=== PATIENT | female | born 1955 | race Caucasian/White ===

== ENCOUNTER 2018-02-14 12:07 | Inpatient (IN) | payer BC ==
[2018-02-14] MEDS ORDERED: Albuterol-Ipratrop 3 mg / 0.5 (3 ml) UD ONE ×2 (12:19→14:14)
[2018-02-14] MEDS ORDERED: Sodium Chloride 0.9% 1,000 ML IV ONE ×2 (12:29→12:30)
[2018-02-14 12:42] LABS: BASO # 0.1 K/uL (0.0-0.2); BASO % 0.5 % (0.0-2.0); HEMOGLOBIN 13.1 g/dL (11.0-16.0); LYMPH # 0.8 K/uL (1.0-4.3); LYMPH % 3.2 % (20.0-40.0); MEAN CELL VOLUME 88.2 fL (81.0-99.0); MEAN CORPUSCULAR HEMOGLOBIN 29.9 pg (27.0-31.0); MEAN CORPUSCULAR HGB CONC 33.9 g/dL (33.0-37.0); MEAN PLATELET VOLUME 8.2 fL (7.2-11.7); MONO # 0.8 K/uL (0.0-0.8); MONO % 3.3 % (0.0-10.0); NEUT # 23.3 K/uL (1.8-7.0); PLATELET COUNT 192 K/uL (130-400); RBC 4.39 Mil/uL (3.80-5.20); RED CELL DISTRIBUTION WIDTH 13.4 % (11.5-14.5)
[2018-02-14] MEDS ORDERED: Sodium Chloride 0.9% 1,000 ML ONE ×2 (12:44→13:28)
[2018-02-14 12:53] LABS: WHITE BLOOD COUNT 25.1 K/uL (4.8-10.8)
--- NOTE | 2018-02-14 12:59 | RAD ---
Date of service: 02/14/2018 HISTORY: SOB COMPARISON: Comparison made with chest radiograph 12/09/[address] scan of the chest 02/12/2012.. FINDINGS: LUNGS: Redemonstrated is left sided pneumonectomy with opacification of the left hemithorax with significant [id number] mediastinal shift. Heart cannot be adequately evaluated as a result of the aforementioned mediastinal shift Right lung appears under expanded compared the prior study with opacity in the right medial lung base that could represent atelectasis and/or developing infiltrate. Clinical correlation recommended. PLEURA: No significant pleural effusion identified, no pneumothorax apparent. CARDIOVASCULAR: No aortic atherosclerotic calcification present. Normal cardiac size. No pulmonary vascular congestion. OSSEOUS STRUCTURES: No significant abnormalities. VISUALIZED UPPER ABDOMEN: Normal. OTHER FINDINGS: None. IMPRESSION: Redemonstrated is left sided pneumonectomy with opacification of the left hemithorax with significant [id number] mediastinal shift. Heart cannot be adequately evaluated as a result of the aforementioned mediastinal shift Right lung appears under expanded compared the prior study with opacity in the right medial lung base that could represent atelectasis and/or developing infiltrate. Clinical correlation recommended.
[2018-02-14 13:14] LABS: BLOOD UREA NITROGEN 20 mg/dL (7-17); GFR NON-AFRICAN AMERICAN > 60
[2018-02-14 13:15] LABS: ALB/GLOB RATIO 1.5 (1.0-2.1); ALBUMIN 4.9 g/dL (3.5-5.0); ALT/SGPT 17 U/L (9-52); AST/SGOT 33 U/L (14-36); CALCIUM 9.6 mg/dl (8.6-10.4)
[2018-02-14] MEDS ORDERED: cefTRIAXone IV 1 gm in Dextros 50 ML IV ONE (13:27)
[2018-02-14] MEDS ORDERED: Azithromycin 500 MG in Sodium Chloride 0.9% 250 ML IV STA (13:28)
[2018-02-14] MEDS ORDERED: Albuterol-Ipratrop 3 mg / 0.5 (3 ml) UD INH STA (13:28)
[2018-02-14 13:30] LABS: B-TYPE NATRIURETIC PEPTIDE 2210 pg/mL (0-900)
[2018-02-14] MEDS ORDERED: Azithromycin 500mg/250ML NS 500 MG/250 ML BAG IVPB ONE (13:44)
[2018-02-14 13:56] LABS: VENOUS BLOOD GAS BASE EXCESS -0.4 mmol/L (0.0-2.0); VENOUS BLOOD GAS PCO2 45 mmHg (40-60); VENOUS BLOOD GAS PO2 35 mm/Hg (30-55); VENOUS BLOOD PH 7.36 (7.32-7.43)
[2018-02-14 14:03] LABS: BANDS 15 % (0-2); LYMPHOCYTE 2 % (20-40); MONOCYTE 3 % (0-10); NEUTROPHIL 80 % (50-75); PLATELET ESTIMATE NORMAL (NORMAL); TOTAL CELLS COUNTED 100
--- NOTE | 2018-02-14 14:24 | C.PDOC ---
History Of Present Illness 62 year old female presents to the ED for evaluation of cough and fever which began 3 days ago. Patient has history of left lobectomy related to either a bacterial or fungal infection. Patient denies any association with tuberculosis. Patient denies chest pain. Time Seen by Provider: 02/14/18 12:26 Chief Complaint (Nursing): Shortness Of Breath History Per: Patient History/Exam Limitations: no limitations Onset/Duration Of Symptoms: Days (3) Current Symptoms Are (Timing): Still Present Quality: denies: "Pain" Associated Symptoms: Fever Additional History Per: Patient Past Medical History Reviewed: Historical Data, Nursing Documentation, Vital Signs Vital Signs: Last Vital Signs Temp 101.6 F H 02/14/18 13:31 Pulse 96 H 02/14/18 13:56 Resp 21 02/14/18 13:56 BP 117/59 L 02/14/18 13:56 Pulse Ox 100 02/14/18 13:56 - Medical History PMH: Anemia, Asthma (QUESTIONABLE), COPD (QUESTIONABLE) Surgical History: No Surg Hx Family History: States: Unknown Family Hx - Social History Hx Tobacco Use: No Hx Alcohol Use: No Hx Substance Use: No - Immunization History Hx Tetanus Toxoid Vaccination: No Hx Influenza Vaccination: No Hx Pneumococcal Vaccination: No Review Of Systems Constitutional: Positive for: Fever Cardiovascular: Negative for: Chest Pain Respiratory: Positive for: Cough Physical Exam - Physical Exam Appears: Non-toxic, No Acute Distress, Chronically Ill, Other (thin ) Skin: Normal Color, Warm, Dry Head: Atraumatic, Normacephalic Eye(s): bilateral: Normal Inspection Oral Mucosa: Moist Neck: Supple Chest: Symmetrical, No Deformity, No Tenderness Cardiovascular: Rhythm Regular, No Murmur Respiratory: Other (absent breath sounds on left side. coarse rhonchi and egophony on right lower lung area ) Extremity: Normal ROM, Capillary Refill (less than 2 seconds ), No Swelling Neurological/Psych: Oriented x3, Normal Speech, Normal Cognition ED Course And Treatment - Laboratory Results Result Diagrams: 02/14/18 12:39 02/14/18 12:39 Lab Interpretation: Abnormal (vbg lactate normal and repeat decreasing) ECG: Interpreted By [place] ECG Interpretation: Normal Rate From EC O2 Sat by Pulse Oximetry: 100 (on RA) Pulse Ox Interpretation: Normal - Radiology CXR: Interpreted by Me CXR Interpretation: Yes: Infiltrates (+RLL, + L lobectomy) - Other Rad CXR X-Ray: Viewed By Me, Read By Radiologist Interpretation: Date of service: 02/14/2018. HISTORY: SOB. COMPARISON: Comparison made with chest radiograph 12/09/[address] scan of the chest 02/12/2012.. FINDINGS: LUNGS: Redemonstrated is left sided pneumonectomy with opacification of the left hemithorax with significant [id number] mediastinal shift. Heart cannot be adequately evaluated as a result of the aforementioned mediastinal shift. Right lung appears under expanded compared the prior study with opacity in the right medial lung base that could represent atelectasis and/or developing infiltrate. Clinical correlation recommended. PLEURA: No significant pleural effusion identified, no pneumothorax apparent. CARDIOVASCULAR: No aortic atherosclerotic calcification present. Normal cardiac size. No pulmonary vascular congestion. OSSEOUS STRUCTURES: No significant abnormalities. VISUALIZED UPPER ABDOMEN: Normal. OTHER FINDINGS: None. IMPRESSION: Redemonstrated is left sided pneumonectomy with opacification of the left hemithorax with significant [id number] mediastinal shift. Heart cannot be adequately evaluated as a result of the aforementioned mediastinal shift. Right lung appears under expanded compared the prior study with opacity in the right medial lung base that could represent atelectasis and/or developing infiltrate. Clinical correlation recommended. Progress Note: Bloodwork, CXR, EKG, Flu swab ordered and reviewed. Albuterol INH, Solu-Medrol IVP, Tylenol PO, Rocephin IV, Zithromax IV, and IV Fluids given. Reevaluation Time: 16:33 Reassessment Condition: Improved - Physician Consult Information Outcome Of Conversation: 1330- and on- multiple failed attempts to contact Dr. Cerda. 1630: d/w Dr. Maxim Ramirez, ok to admit Medical Decision Making Medical Decision Making: RLL PNA, h/o L lobectomy Disposition Doctor Will See Patient In The: Hospital Counseled Patient/Family Regarding: Studies Performed, Diagnosis - Disposition Disposition: HOSPITALIZED Disposition Time: 16:35 Condition: GOOD Forms: [facility] (Pashto) - Clinical Impression Clinical Impression: Pneumonia - Scribe Statement The provider has reviewed the documentation as recorded by the Scribe (Maria Isabel Ramirez) Provider Attestation: All medical record entries made by the Scribe were at my direction and personally dictated by me. I have reviewed the chart and agree that the record accurately reflects my personal performance of the history, physical exam, medical decision making, and the department course for this patient. I have also personally directed, reviewed, and agree with the discharge instructions and disposition.
[2018-02-14] MEDS ORDERED: cefTRIAXone 1 gm 1 GM/100 ML BAG IVPB ONE (15:08)
[2018-02-14 16:09] LABS: VENOUS BLOOD GAS BASE EXCESS -6.7 mmol/L (0.0-2.0); VENOUS BLOOD GAS PCO2 39 mmHg (40-60); VENOUS BLOOD GAS PO2 65 mm/Hg (30-55)
--- NOTE | 2018-02-14 18:30 | CP.PCM.HP ---
Past Patient History - Past Social History Smoking Status: Never Smoked - PULMONARY Hx Asthma: Yes (QUESTIONABLE) Hx Chronic Obstructive Pulmonary Disease (COPD): Yes (QUESTIONABLE) - HEMATOLOGICAL/ONCOLOGICAL Hx Anemia: Yes - PSYCHIATRIC Hx Substance Use: No - SURGICAL HISTORY Hx Surgeries: Yes Other/Comment: L LUNG REMOVAL 2003 Meds Allergies/Adverse Reactions: Allergies Allergy/AdvReac Type Severity Reaction Status Date / Time No Known Allergies Allergy Verified 08/20/14 17:30 Results - Vital Signs Recent Vital Signs: Last Vital Signs Temp 98.5 F 02/14/18 17:56 Pulse 90 02/14/18 17:56 Resp 23 02/14/18 17:56 BP 101/51 L 02/14/18 17:56 Pulse Ox 96 02/14/18 17:56 - Labs Result Diagrams: 02/14/18 12:39 02/14/18 12:39 Labs: Laboratory Results - last 24 hr 02/14/18 02/14/18 02/14/18 01:50 12:39 12:39 WBC 25.1 H D RBC 4.39 Hgb 13.1 Hct 38.7 MCV 88.2 MCH 29.9 MCHC 33.9 RDW 13.4 Plt Count 192 MPV 8.2 Neut % (Auto) 93.0 H Lymph % (Auto) 3.2 L [place] % (Auto) 3.3 Eos % (Auto) 0.0 Baso % (Auto) 0.5 Neut # (Auto) 23.3 H Lymph # (Auto) 0.8 L [place] # (Auto) 0.8 Eos # (Auto) 0.0 Baso # (Auto) 0.1 Neutrophils % (Manual) 80 H Band Neutrophils % 15 H* Lymphocytes % (Manual) 2 L Monocytes % (Manual) 3 Platelet Estimate Normal pO2 35 VBG pH 7.36 VBG pCO2 45 VBG HCO3 23.7 VBG Total CO2 26.8 VBG O2 Sat (Calc) 73.3 H VBG Base Excess -0.4 L VBG Potassium 3.5 L Sodium 140.0 140 Chloride 110.0 H 99 Glucose 129 H Lactate 1.8 FiO2 Potassium 3.7 Carbon Dioxide 28 Anion Gap 17 BUN 20 H Creatinine 0.9 Est GFR ( Amer) > 60 Est GFR (Non-Af Amer) > 60 Random Glucose 121 H Calcium 9.6 Total Bilirubin 1.1 AST 33 ALT 17 Alkaline Phosphatase 88 Troponin I 0.0150 NT-Pro-B Natriuret Pep 2210 H Total Protein 8.3 Albumin 4.9 Globulin 3.4 Albumin/Globulin Ratio 1.5 Venous Blood Potassium 3.5 L Influenza Typ A,B (EIA) 02/14/18 02/14/18 13:01 16:05 WBC RBC Hgb Hct MCV MCH MCHC RDW Plt Count MPV Neut % (Auto) Lymph % (Auto) [place] % (Auto) Eos % (Auto) Baso % (Auto) Neut # (Auto) Lymph # (Auto) [place] # (Auto) Eos # (Auto) Baso # (Auto) Neutrophils % (Manual) Band Neutrophils % Lymphocytes % (Manual) Monocytes % (Manual) Platelet Estimate pO2 65 H VBG pH 7.30 L VBG pCO2 39 L VBG HCO3 19.5 VBG Total CO2 20.4 L VBG O2 Sat (Calc) 94.5 H VBG Base Excess -6.7 L VBG Potassium 2.6 L Sodium 147.0 Chloride 121.0 H Glucose 133 H Lactate 1.4 FiO2 21.0 Potassium Carbon Dioxide Anion Gap BUN Creatinine Est GFR ( Amer) Est GFR (Non-Af Amer) Random Glucose Calcium Total Bilirubin AST ALT Alkaline Phosphatase Troponin I NT-Pro-B Natriuret Pep Total Protein Albumin Globulin Albumin/Globulin Ratio Venous Blood Potassium 2.6 L Influenza Typ A,B (EIA) Negative for flu a/b
--- NOTE | 2018-02-14 19:45 | CP.PCM.CON ---
History of Present Illness - History of Present Illness History of Present Illness: 62 year old female presents to the ED for evaluation of cough and fever which began 3 days ago. Patient has history of left lobectomy related to either a bacterial or fungal infection. Patient denies any association with tuberculosis. Patient denies chest pain. CXR reviewed - white out left side right side is clear PMH ? aspergillosis s/p lobectomy Left lobectomy SH non smoker FH - n/c Review of Systems - Review of Systems All systems: reviewed and no additional remarkable complaints except - Constitutional Constitutional: As Per HPI, Anorexia, Fever - EENT Eyes: absent: As Per HPI, Blind Spots, Blurred Vision, Change in Vision, Decreased Night Vision, Diplopia, Discharge, Dry Eye, Exophthalmos, Floaters, Irritation, Itchy Eyes, Loss of Peripheral Vision, Pain, Photophobia, Requires Corrective Lenses, Sees Flashes, Spots in Vision, Tunnel Vision, Other Visual Disturbances, Loss of Vision, Other Ears: absent: As Per HPI, Decreased Hearing, Ear Discharge, Ear Pain, Tinnitus, Abnormal Hearing, Disequilibrium, Dizziness, Other Nose/Mouth/Throat: absent: As Per HPI, Epistaxis, Nasal Congestion, Nasal Discharge, Nasal Obstruction, Nasal Trauma, Nose Pain, Post Nasal Drip, Sinus Pain, Sinus Pressure, Bleeding Gums, Change in Voice, Dental Pain, Dry Mouth, Dysphagia, Halitosis, Hoarsness, Lip Swelling, Mouth Lesions, Mouth Pain, Odynophagia, Sore Throat, Throat Swelling, Tongue Swelling, Facial Pain, Neck Pain, Neck Mass, Other - Cardiovascular Cardiovascular: absent: As Per HPI, Acrocyanosis, Chest Pain, Chest Pain at Rest, Chest Pain with Activity, Claudication, Diaphoresis, Dyspnea, Dyspnea on Exertion, Edema, Irregular Heart Rhythm, Pain Radiating to Arm/Neck/Jaw, Leg Edema, Leg Ulcers, Lightheadedness, Orthopnea, Palpitations, Paroxysmal Nocturnal Dyspnea, Pedal Edema, Radiating Pain, Rapid Heart Rate, Slow Heart Rate, Syncope, Other - Respiratory Respiratory: As Per HPI, Cough, Dyspnea Past Patient History - Past Medical History & Family History Past Medical History?: Yes - Past Social History Smoking Status: Never Smoked - CARDIAC Hx Cardiac Disorders: No - PULMONARY Hx Respiratory Disorders: Yes Hx Asthma: Yes Hx Chronic Obstructive Pulmonary Disease (COPD): Yes - NEUROLOGICAL Hx Neurological Disorder: No - HEENT Hx HEENT Problems: No - RENAL Hx Chronic Kidney Disease: No - ENDOCRINE/METABOLIC Hx Endocrine Disorders: No - HEMATOLOGICAL/ONCOLOGICAL Hx Blood Disorders: Yes Hx Anemia: Yes - INTEGUMENTARY Hx Dermatological Problems: No - MUSCULOSKELETAL/RHEUMATOLOGICAL Hx Musculoskeletal Disorders: No Hx Falls: No - GASTROINTESTINAL Hx Gastrointestinal Disorders: No - GENITOURINARY/GYNECOLOGICAL Hx Genitourinary Disorders: No - PSYCHIATRIC Hx Psychophysiologic Disorder: No Hx Substance Use: No - SURGICAL HISTORY Hx Surgeries: Yes Hx Hysterectomy: Yes Other/Comment: L LUNG REMOVAL 2004 - ANESTHESIA Hx Anesthesia: Yes Hx Anesthesia Reactions: No Hx Malignant Hyperthermia: No Has any member of the family had a problem w/ anesthesia?: No Meds Allergies/Adverse Reactions: Allergies Allergy/AdvReac Type Severity Reaction Status Date / Time morphine AdvReac HEADACHE Verified 02/14/18 18:51 - Medications Medications: Current Medications Albuterol/Ipratropium (Duoneb 3 Mg/0.5 Mg (3 Ml) Ud) 3 ml INH RQ6 LORY Fluticasone/Vilanterol (Breo Ellipta 100-25 Mcg Inh) 1 puff INH RQ24 LORY Ceftriaxone Sodium (Rocephin Iv 1 Gm Duplex) 50 mls @ 100 mls/hr IVPB DAILY LORY; Protocol Azithromycin 500 mg/ Sodium (Chloride) 250 mls @ 250 mls/hr IVPB DAILY LORY; Protocol Methylprednisolone (Solu-Medrol) 40 mg IVP Q8 LORY Montelukast Sodium (Singulair) 10 mg PO HS LORY Tiotropium [place] (Spiriva) 1 mcg INH DAILY LORY Physical Exam - Constitutional Appears: Cachectic, Chronically Ill - Head Exam Head Exam: NORMOCEPHALIC - Eye Exam Eye Exam: PERRL Pupil Exam: NORMAL ACCOMODATION - ENT Exam ENT Exam: Mucous Membranes Dry - Neck Exam Neck exam: Positive for: Normal Inspection - Respiratory Exam Respiratory Exam: Decreased Breath Sounds, Prolonged Expiratory Phase, Rales - Cardiovascular Exam Cardiovascular Exam: REGULAR RHYTHM - GI/Abdominal Exam GI & Abdominal Exam: Normal Bowel Sounds, Soft - Rectal Exam Rectal Exam: Deferred - Exam Exam: NORMAL INSPECTION - Extremities Exam Extremities exam: Positive for: full ROM - Back Exam Back exam: FULL ROM - Neurological Exam Neurological exam: CN II-XII Intact, Oriented x3 - Psychiatric Exam Psychiatric exam: Normal Affect - Skin Skin Exam: Dry Results - Vital Signs Recent Vital Signs: Last Vital Signs Temp 98.0 F 02/14/18 18:33 Pulse 87 02/14/18 18:33 Resp 20 02/14/18 18:58 BP 106/61 02/14/18 18:33 Pulse Ox 97 02/14/18 18:58 - Labs Result Diagrams: 02/15/18 08:16 02/15/18 08:16 Labs: Laboratory Results - last 24 hr 02/14/18 02/14/18 02/14/18 01:50 12:39 12:39 WBC 25.1 H D RBC 4.39 Hgb 13.1 Hct 38.7 MCV 88.2 MCH 29.9 MCHC 33.9 RDW 13.4 Plt Count 192 MPV 8.2 Neut % (Auto) 93.0 H Lymph % (Auto) 3.2 L [place] % (Auto) 3.3 Eos % (Auto) 0.0 Baso % (Auto) 0.5 Neut # (Auto) 23.3 H Lymph # (Auto) 0.8 L [place] # (Auto) 0.8 Eos # (Auto) 0.0 Baso # (Auto) 0.1 Neutrophils % (Manual) 80 H Band Neutrophils % 15 H* Lymphocytes % (Manual) 2 L Monocytes % (Manual) 3 Platelet Estimate Normal pO2 35 VBG pH 7.36 VBG pCO2 45 VBG HCO3 23.7 VBG Total CO2 26.8 VBG O2 Sat (Calc) 73.3 H VBG Base Excess -0.4 L VBG Potassium 3.5 L Sodium 140.0 140 Chloride 110.0 H 99 Glucose 129 H Lactate 1.8 FiO2 Potassium 3.7 Carbon Dioxide 28 Anion Gap 17 BUN 20 H Creatinine 0.9 Est GFR ( Amer) > 60 Est GFR (Non-Af Amer) > 60 Random Glucose 121 H Calcium 9.6 Total Bilirubin 1.1 AST 33 ALT 17 Alkaline Phosphatase 88 Troponin I 0.0150 NT-Pro-B Natriuret Pep 2210 H Total Protein 8.3 Albumin 4.9 Globulin 3.4 Albumin/Globulin Ratio 1.5 Venous Blood Potassium 3.5 L Influenza Typ A,B (EIA) 02/14/18 02/14/18 13:01 16:05 WBC RBC Hgb Hct MCV MCH MCHC RDW Plt Count MPV Neut % (Auto) Lymph % (Auto) [place] % (Auto) Eos % (Auto) Baso % (Auto) Neut # (Auto) Lymph # (Auto) [place] # (Auto) Eos # (Auto) Baso # (Auto) Neutrophils % (Manual) Band Neutrophils % Lymphocytes % (Manual) Monocytes % (Manual) Platelet Estimate pO2 65 H VBG pH 7.30 L VBG pCO2 39 L VBG HCO3 19.5 VBG Total CO2 20.4 L VBG O2 Sat (Calc) 94.5 H VBG Base Excess -6.7 L VBG Potassium 2.6 L Sodium 147.0 Chloride 121.0 H Glucose 133 H Lactate 1.4 FiO2 21.0 Potassium Carbon Dioxide Anion Gap BUN Creatinine Est GFR ( Amer) Est GFR (Non-Af Amer) Random Glucose Calcium Total Bilirubin AST ALT Alkaline Phosphatase Troponin I NT-Pro-B Natriuret Pep Total Protein Albumin Globulin Albumin/Globulin Ratio Venous Blood Potassium 2.6 L Influenza Typ A,B (EIA) Negative for flu a/b Assessment & Plan - Assessment and Plan (Free Text) Assessment: severe pneumonia hx of lobectomy left side ? hx aspergillosis impending respiratory failure r/o sepsis add coverage for pseudomonas screen for MRSA cont coverage for atypicals/ legionella cultures and serologies
[2018-02-14] MEDS: Cefepime IV 1 gm in Dextrose 1 GM/50 ML BAG IVPB SCH (20:59)
[2018-02-14] MEDS: MethylPREDNISolone 40 mg Vial IVP SCH (21:01)
[2018-02-15] MEDS: Albuterol-Ipratrop 3 mg / 0.5 (3 ml) UD INH SCH ×4 (01:01→20:03)
[2018-02-15] MEDS: Cefepime IV 1 gm in Dextrose 1 GM/50 ML BAG IVPB SCH ×3 (03:28→19:51)
[2018-02-15] MEDS: MethylPREDNISolone 40 mg Vial IVP SCH ×3 (05:25→21:39)
[2018-02-15] MEDS ORDERED: Fluticasone-Vilanterol 100/25mcg Diskus INH SCH (08:00)
[2018-02-15 08:28] LABS: INFLUENZA A B NEGATIVE FOR FLU A/B (NEGATIVE)
[2018-02-15 08:28] LABS: LYMPH # 0.6 K/uL (1.0-4.3); LYMPH % 2.9 % (20.0-40.0); MONO # 0.4 K/uL (0.0-0.8); MONO % 1.7 % (0.0-10.0); RED CELL DISTRIBUTION WIDTH 13.7 % (11.5-14.5)
[2018-02-15 08:33] LABS: BASO % 0.1 % (0.0-2.0); MEAN CELL VOLUME 87.6 fL (81.0-99.0); MEAN CORPUSCULAR HEMOGLOBIN 29.5 pg (27.0-31.0); MEAN CORPUSCULAR HGB CONC 33.7 g/dL (33.0-37.0); MEAN PLATELET VOLUME 8.9 fL (7.2-11.7); NEUT # 20.5 K/uL (1.8-7.0); NEUT % 95.3 % (50.0-75.0); PLATELET COUNT 147 K/uL (130-400); RBC 3.67 Mil/uL (3.80-5.20); WHITE BLOOD COUNT 21.6 K/uL (4.8-10.8)
[2018-02-15 08:34] LABS: LEGIONELLA AG URINE NEGATIVE (NEGATIVE)
[2018-02-15 08:39] LABS: HEMOGLOBIN 10.8 g/dL (11.0-16.0)
[2018-02-15 08:51] LABS: BLOOD UREA NITROGEN 14 mg/dL (7-17); CALCIUM 9.2 mg/dl (8.6-10.4); GFR NON-AFRICAN AMERICAN > 60
[2018-02-15 09:52] LABS: BANDS 15 % (0-2); LYMPHOCYTE 2 % (20-40); MONOCYTE 4 % (0-10); NEUTROPHIL 79 % (50-75); PLATELET ESTIMATE NORMAL (NORMAL); TOTAL CELLS COUNTED 100
[2018-02-15 09:53] LABS: ANISOCYTOSIS SLIGHT; HYPOCHROMIC SLIGHT; LARGE PLATELETS PRESENT; POLYCHROMIC SLIGHT; TOXIC GRANULATION PRESENT
[2018-02-15] MEDS ORDERED: cefTRIAXone IV 1 gm in Dextros 50 ML IVPB SCH (10:00)
[2018-02-15] MEDS: Tiotropium 18 mcg Cap For Inhalation INH SCH (10:04)
[2018-02-15] MEDS: Azithromycin 500 MG in Sodium Chloride 0.9% 250 ML IVPB SCH (10:12)
[2018-02-15] MEDS: Enoxaparin 40 mg Syringe SC SCH (11:48)
--- NOTE | 2018-02-15 15:06 | CP.PCM.PN ---
Subjective - Date & Time of Evaluation Date of Evaluation: 02/15/18 Time of Evaluation: 08:45 - Subjective Subjective: clinically same Objective - Vital Signs/Intake and Output Vital Signs (last 24 hours): Temp Pulse Resp BP Pulse Ox 97.8 F 68 18 103/56 L 98 02/15/18 07:00 02/15/18 07:00 02/15/18 07:00 02/15/18 07:00 02/15/18 07:00 Intake and Output: 02/15/18 02/15/18 06:59 18:59 Intake Total 50 780 Balance 50 780 - Medications Medications: Current Medications Acetaminophen (Tylenol 325mg Tab) 650 mg PO Q6 PRN PRN Reason: Fever >100.4 F Albuterol/Ipratropium (Duoneb 3 Mg/0.5 Mg (3 Ml) Ud) 3 ml INH RQ6 LORY Last Admin: 02/15/18 13:42 Dose: 3 ml Enoxaparin Sodium (Lovenox) 40 mg SC DAILY LORY Last Admin: 02/15/18 11:48 Dose: 40 mg Fluticasone/Vilanterol (Breo Ellipta 100-25 Mcg Inh) 1 puff INH RQ24 LORY Azithromycin 500 mg/ Sodium (Chloride) 250 mls @ 250 mls/hr IVPB DAILY LORY; Protocol Last Admin: 02/15/18 10:12 Dose: 250 mls/hr Cefepime HCl (Maxipime Iv 1 Gm Premix) 1 gm in 50 mls @ 100 mls/hr IVPB Q8H LORY; Protocol Last Admin: 02/15/18 11:45 Dose: 100 mls/hr Methylprednisolone (Solu-Medrol) 40 mg IVP Q8 LORY Last Admin: 02/15/18 13:34 Dose: 40 mg Montelukast Sodium (Singulair) 10 mg PO HS LORY Last Admin: 02/14/18 21:01 Dose: 10 mg Tiotropium [place] (Spiriva) 1 mcg INH DAILY LORY Last Admin: 02/15/18 10:04 Dose: Not Given - Labs Labs: 02/15/18 08:16 02/15/18 08:16 - Constitutional Appears: Well - Head Exam Head Exam: ATRAUMATIC, NORMAL INSPECTION, NORMOCEPHALIC - Eye Exam Eye Exam: EOMI, Normal appearance, PERRL Pupil Exam: NORMAL ACCOMODATION, PERRL - ENT Exam ENT Exam: Mucous Membranes Moist, Normal Exam - Neck Exam Neck Exam: Full ROM, Normal Inspection. absent: Lymphadenopathy - Respiratory Exam Respiratory Exam: Decreased Breath Sounds - Cardiovascular Exam Cardiovascular Exam: REGULAR RHYTHM, +S1, +S2 - GI/Abdominal Exam GI & Abdominal Exam: Soft, Diminished Bowel Sounds - Rectal Exam Rectal Exam: Deferred
[2018-02-16] MEDS: Albuterol-Ipratrop 3 mg / 0.5 (3 ml) UD INH SCH ×4 (01:39→20:50)
[2018-02-16] MEDS: Cefepime IV 1 gm in Dextrose 1 GM/50 ML BAG IVPB SCH ×3 (04:22→20:02)
[2018-02-16] MEDS: MethylPREDNISolone 40 mg Vial IVP SCH ×3 (06:07→21:38)
[2018-02-16 07:30] LABS: BASO % 0.2 % (0.0-2.0); HEMOGLOBIN 10.5 g/dL (11.0-16.0); LYMPH # 0.7 K/uL (1.0-4.3); LYMPH % 3.6 % (20.0-40.0); MEAN CELL VOLUME 87.7 fL (81.0-99.0); MEAN CORPUSCULAR HEMOGLOBIN 29.3 pg (27.0-31.0); MEAN CORPUSCULAR HGB CONC 33.4 g/dL (33.0-37.0); MEAN PLATELET VOLUME 8.8 fL (7.2-11.7); MONO # 0.4 K/uL (0.0-0.8); NEUT # 17.6 K/uL (1.8-7.0); NEUT % 94.2 % (50.0-75.0); PLATELET COUNT 158 K/uL (130-400); RBC 3.59 Mil/uL (3.80-5.20); RED CELL DISTRIBUTION WIDTH 13.9 % (11.5-14.5); WHITE BLOOD COUNT 18.7 K/uL (4.8-10.8)
[2018-02-16 08:02] LABS: BLOOD UREA NITROGEN 19 mg/dL (7-17); CALCIUM 9.2 mg/dl (8.6-10.4); GFR NON-AFRICAN AMERICAN > 60
[2018-02-16 09:19] LABS: BANDS 7 % (0-2); LYMPHOCYTE 3 % (20-40); MONOCYTE 2 % (0-10); NEUTROPHIL 88 % (50-75); PLATELET ESTIMATE NORMAL (NORMAL); TOTAL CELLS COUNTED 100
[2018-02-16 09:20] LABS: ANISOCYTOSIS SLIGHT; OVALOCYTES SLIGHT; POIKILOCYTOSIS SLIGHT
[2018-02-16 09:21] LABS: HYPOCHROMIC SLIGHT; LARGE PLATELETS PRESENT; POLYCHROMIC SLIGHT; TOXIC GRANULATION PRESENT
[2018-02-16] MEDS: Enoxaparin 40 mg Syringe SC SCH (10:06)
[2018-02-16] MEDS: Azithromycin 500 MG in Sodium Chloride 0.9% 250 ML IVPB SCH (10:08)
--- NOTE | 2018-02-16 12:38 | CP.PCM.PN ---
Subjective - Date & Time of Evaluation Date of Evaluation: 02/16/18 Time of Evaluation: 08:15 - Subjective Subjective: clinically same Objective - Vital Signs/Intake and Output Vital Signs (last 24 hours): Temp Pulse Resp BP Pulse Ox 97.5 F L 75 18 116/65 100 02/16/18 07:00 02/16/18 07:00 02/16/18 07:00 02/16/18 07:00 02/16/18 07:00 Intake and Output: 02/16/18 02/16/18 06:59 18:59 Intake Total 50 Balance 50 - Medications Medications: Current Medications Acetaminophen (Tylenol 325mg Tab) 650 mg PO Q6 PRN PRN Reason: Fever >100.4 F Albuterol/Ipratropium (Duoneb 3 Mg/0.5 Mg (3 Ml) Ud) 3 ml INH RQ6 LORY Last Admin: 02/16/18 08:15 Dose: 3 ml Enoxaparin Sodium (Lovenox) 40 mg SC DAILY LORY Last Admin: 02/16/18 10:06 Dose: 40 mg Fluticasone/Vilanterol (Breo Ellipta 100-25 Mcg Inh) 1 puff INH RQ24 LORY Azithromycin 500 mg/ Sodium (Chloride) 250 mls @ 250 mls/hr IVPB DAILY LORY; Protocol Last Admin: 02/16/18 10:08 Dose: 250 mls/hr Cefepime HCl (Maxipime Iv 1 Gm Premix) 1 gm in 50 mls @ 100 mls/hr IVPB Q8H LORY; Protocol Last Admin: 02/16/18 12:24 Dose: 100 mls/hr Methylprednisolone (Solu-Medrol) 40 mg IVP Q8 LORY Last Admin: 02/16/18 06:07 Dose: 40 mg Montelukast Sodium (Singulair) 10 mg PO HS LORY Last Admin: 02/15/18 21:40 Dose: 10 mg Tiotropium [place] (Spiriva) 1 mcg INH DAILY LORY Last Admin: 02/15/18 10:04 Dose: Not Given Tramadol HCl (Ultram) 50 mg PO Q6 PRN PRN Reason: Pain, moderate (4-7) Last Admin: 02/15/18 20:31 Dose: 50 mg - Labs Labs: 02/16/18 07:23 02/16/18 07:23 - Constitutional Appears: Well - Head Exam Head Exam: ATRAUMATIC, NORMAL INSPECTION, NORMOCEPHALIC - Eye Exam Eye Exam: EOMI, Normal appearance, PERRL Pupil Exam: NORMAL ACCOMODATION, PERRL - ENT Exam ENT Exam: Mucous Membranes Moist, Normal Exam - Neck Exam Neck Exam: Full ROM, Normal Inspection. absent: Lymphadenopathy - Respiratory Exam Respiratory Exam: Decreased Breath Sounds - Cardiovascular Exam Cardiovascular Exam: REGULAR RHYTHM, +S1, +S2 - GI/Abdominal Exam GI & Abdominal Exam: Soft, Diminished Bowel Sounds - Rectal Exam Rectal Exam: Deferred
[2018-02-16] MEDS: Tiotropium 18 mcg Cap For Inhalation INH SCH (13:09)
--- NOTE | 2018-02-16 13:22 | CT ---
CT chest HISTORY: Pain during breathing. COMPARISON: X-ray dated 02/14/2018 TECHNIQUE: Multiple contiguous axial images were performed through the chest without the use of intravenous contrast. Subsequently sagittal and coronal reformatted images were obtained. This CT exam was performed using one or more of the following dose reduction techniques: Automated exposure control, adjustment of the mA and/or kV according to patient size, and/or use of iterative reconstruction technique. Findings: Redemonstrated is left-sided pneumonectomy with opacification of the left hemithorax and significant right to left mediastinal shift. Small right pleural effusion. Patchy consolidative opacifications seen within the medial aspect of the right lower lobe as demonstrated on series 3, images 67 through 102 concerning for prominent developing infiltrate. Post treatment interval follow-up is recommended to ensure resolution and exclude residual lesion. More superiorly within the right lower lobe there appears to be some focal consolidation and/or atelectasis adjacent to the pleural effusion at its dependent portion. Few scattered ground-glass opacities within the remainder of the right lower lobe which may be the sequelae of acute infectious and or inflammatory changes. Again post treatment interval follow-up is recommended to ensure resolution and exclude residual disease. Prominent atelectasis with associated bronchiectasis seen within the medial aspect of the right upper lobe near the right lung apex. Apical pleural thickening with some consolidative changes at the posterior aspect of the right lung apex. Few scattered patchy areas of airspace consolidation more inferiorly within the right upper lobe. Mild atelectasis and/or consolidative changes in the posterior inferior aspect of the right middle lobe. Trachea is grossly preserved. No significant axillary adenopathy. Thyroid is preserved. Mild aneurysmal dilatation of the ascending aorta measuring 3.1 centimeters. Atherosclerotic calcification plaque noted within the aorta. Few shotty mediastinal nodes. Nodularity of the left adrenal gland. Deformities of several left lateral ribs likely postsurgical. Impression: 1. Redemonstrated is left-sided pneumonectomy with opacification of the left hemithorax and significant right to left mediastinal shift. 2. Patchy consolidative opacifications seen within the medial aspect of the right lower lobe as demonstrated on series 3, images 67 through 102 concerning for prominent developing infiltrate. Post treatment interval follow-up is recommended to ensure resolution and exclude residual lesion. More superiorly within the right lower lobe there appears to be some focal consolidation and/or atelectasis adjacent to the pleural effusion at its dependent portion. Few scattered ground-glass opacities within the remainder of the right lower lobe which may be the sequelae of acute infectious and or inflammatory changes. Again post treatment interval follow-up is recommended to ensure resolution and exclude residual disease. 3. Small right pleural effusion. 4. Prominent atelectasis with associated bronchiectasis seen within the medial aspect of the right upper lobe near the right lung apex. Apical pleural thickening with some consolidative changes at the posterior aspect of the right lung apex. Few scattered patchy areas of airspace consolidation more inferiorly within the right upper lobe. 5. Mild atelectasis and/or consolidative changes in the posterior inferior aspect of the right middle lobe. 6. Mild aneurysmal dilatation of the ascending aorta measuring 3.1 centimeters. Atherosclerotic calcification plaque noted within the aorta. 7. Nodularity of the left adrenal gland. 8. Deformities of several left lateral ribs likely postsurgical.
--- NOTE | 2018-02-16 17:12 | CP.PCM.PN ---
Subjective - Date & Time of Evaluation Date of Evaluation: 02/16/18 Time of Evaluation: 08:00 - Subjective Subjective: less cough less sob no fever weak bedridden Objective - Vital Signs/Intake and Output Vital Signs (last 24 hours): Temp Pulse Resp BP Pulse Ox 97.5 F L 75 18 116/65 100 02/16/18 07:00 02/16/18 07:00 02/16/18 07:00 02/16/18 07:00 02/16/18 07:00 Intake and Output: 02/16/18 02/16/18 06:59 18:59 Intake Total 50 Balance 50 - Medications Medications: Current Medications Acetaminophen (Tylenol 325mg Tab) 650 mg PO Q6 PRN PRN Reason: Fever >100.4 F Albuterol/Ipratropium (Duoneb 3 Mg/0.5 Mg (3 Ml) Ud) 3 ml INH RQ6 [facility] Last Admin: 02/16/18 13:09 Dose: 3 ml Enoxaparin Sodium (Lovenox) 40 mg SC DAILY [facility] Last Admin: 02/16/18 10:06 Dose: 40 mg Fluticasone/Vilanterol (Breo Ellipta 100-25 Mcg Inh) 1 puff INH RQ24 [facility] Azithromycin 500 mg/ Sodium (Chloride) 250 mls @ 250 mls/hr IVPB DAILY [facility]; Protocol Last Admin: 02/16/18 10:08 Dose: 250 mls/hr Cefepime HCl (Maxipime Iv 1 Gm Premix) 1 gm in 50 mls @ 100 mls/hr IVPB Q8H [facility]; Protocol Last Admin: 02/16/18 12:24 Dose: 100 mls/hr Methylprednisolone (Solu-Medrol) 40 mg IVP Q8 [facility] Last Admin: 02/16/18 13:51 Dose: 40 mg Montelukast Sodium (Singulair) 10 mg PO HS [facility] Last Admin: 02/15/18 21:40 Dose: 10 mg Tiotropium [place] (Spiriva) 1 mcg INH DAILY [facility] Last Admin: 02/16/18 13:09 Dose: Not Given Tramadol HCl (Ultram) 50 mg PO Q6 PRN PRN Reason: Pain, moderate (4-7) Last Admin: 02/15/18 20:31 Dose: 50 mg - Labs Labs: 02/16/18 07:23 02/16/18 07:23 - Constitutional Appears: Cachectic, Chronically Ill - Head Exam Head Exam: NORMOCEPHALIC - Eye Exam Eye Exam: absent: Scleral icterus - ENT Exam ENT Exam: Mucous Membranes Dry - Neck Exam Neck Exam: absent: Lymphadenopathy - Respiratory Exam Respiratory Exam: Decreased Breath Sounds, Prolonged Expiratory Phase, Rales - Cardiovascular Exam Cardiovascular Exam: REGULAR RHYTHM, +S1, +S2 - GI/Abdominal Exam GI & Abdominal Exam: Distended, Soft. absent: Tenderness - Rectal Exam Rectal Exam: Deferred - Exam Exam: NORMAL INSPECTION - Extremities Exam Extremities Exam: absent: Pedal Edema - Back Exam Back Exam: absent: CVA tenderness (L), CVA tenderness (R) - Neurological Exam Neurological Exam: Alert, Awake, CN II-XII Intact, Oriented x3 - Psychiatric Exam Psychiatric exam: Depressed - Skin Skin Exam: Dry Assessment and Plan (1) Pneumonia Status: Acute - Assessment and Plan (Free Text) Assessment: s/p lobectomy left side new right lung infiltrate prognoisis guarded await cultures
--- NOTE | 2018-02-16 18:03 | CP.PCM.CON ---
History of Present Illness - History of Present Illness History of Present Illness: 62-year-old female with left pneumonectomy presents with cough, shortness of breath, fever and phlegm. Patient is found to have right-sided pneumonia. She reports improvement in symptoms and denies any chest pain. Review of Systems - Review of Systems All systems: reviewed and no additional remarkable complaints except (As mentioned in HPI) Past Patient History - Past Medical History & Family History Past Medical History?: Yes - Past Social History Smoking Status: Never Smoked - CARDIAC Hx Cardiac Disorders: No - PULMONARY Hx Respiratory Disorders: Yes Hx Asthma: Yes Hx Chronic Obstructive Pulmonary Disease (COPD): Yes - NEUROLOGICAL Hx Neurological Disorder: No - HEENT Hx HEENT Problems: No - RENAL Hx Chronic Kidney Disease: No - ENDOCRINE/METABOLIC Hx Endocrine Disorders: No - HEMATOLOGICAL/ONCOLOGICAL Hx Blood Disorders: Yes Hx Anemia: Yes - INTEGUMENTARY Hx Dermatological Problems: No - MUSCULOSKELETAL/RHEUMATOLOGICAL Hx Musculoskeletal Disorders: No Hx Falls: No - GASTROINTESTINAL Hx Gastrointestinal Disorders: No - GENITOURINARY/GYNECOLOGICAL Hx Genitourinary Disorders: No - PSYCHIATRIC Hx Psychophysiologic Disorder: No Hx Substance Use: No - SURGICAL HISTORY Hx Surgeries: Yes Hx Hysterectomy: Yes Other/Comment: L LUNG REMOVAL 2003 - ANESTHESIA Hx Anesthesia: Yes Hx Anesthesia Reactions: No Hx Malignant Hyperthermia: No Has any member of the family had a problem w/ anesthesia?: No Meds Allergies/Adverse Reactions: Allergies Allergy/AdvReac Type Severity Reaction Status Date / Time morphine AdvReac HEADACHE Verified 02/14/18 18:51 - Medications Medications: Current Medications Acetaminophen (Tylenol 325mg Tab) 650 mg PO Q6 PRN PRN Reason: Fever >100.4 F Albuterol/Ipratropium (Duoneb 3 Mg/0.5 Mg (3 Ml) Ud) 3 ml INH RQ6 [facility] Last Admin: 02/16/18 13:09 Dose: 3 ml Enoxaparin Sodium (Lovenox) 40 mg SC DAILY [facility] Last Admin: 02/16/18 10:06 Dose: 40 mg Fluticasone/Vilanterol (Breo Ellipta 100-25 Mcg Inh) 1 puff INH RQ24 [facility] Azithromycin 500 mg/ Sodium (Chloride) 250 mls @ 250 mls/hr IVPB DAILY [facility]; Protocol Last Admin: 02/16/18 10:08 Dose: 250 mls/hr Cefepime HCl (Maxipime Iv 1 Gm Premix) 1 gm in 50 mls @ 100 mls/hr IVPB Q8H [facility]; Protocol Last Admin: 02/16/18 12:24 Dose: 100 mls/hr Methylprednisolone (Solu-Medrol) 40 mg IVP Q8 [facility] Last Admin: 02/16/18 13:51 Dose: 40 mg Montelukast Sodium (Singulair) 10 mg PO HS [facility] Last Admin: 02/15/18 21:40 Dose: 10 mg Tiotropium [place] (Spiriva) 1 mcg INH DAILY [facility] Last Admin: 02/16/18 13:09 Dose: Not Given Tramadol HCl (Ultram) 50 mg PO Q6 PRN PRN Reason: Pain, moderate (4-7) Last Admin: 02/15/18 20:31 Dose: 50 mg Physical Exam - Head Exam Head Exam: NORMAL INSPECTION - Eye Exam Eye Exam: Normal appearance - ENT Exam ENT Exam: Mucous Membranes Moist - Respiratory Exam Respiratory Exam: Clear to Auscultation Bilateral, NORMAL BREATHING PATTERN - Cardiovascular Exam Cardiovascular Exam: REGULAR RHYTHM, +S1, +S2 - GI/Abdominal Exam GI & Abdominal Exam: Normal Bowel Sounds - Neurological Exam Neurological exam: Normal Gait, Oriented x3 - Psychiatric Exam Psychiatric exam: Normal Affect, Normal Mood Results - Vital Signs Recent Vital Signs: Last Vital Signs Temp 97.5 F L 02/16/18 07:00 Pulse 75 02/16/18 07:00 Resp 18 02/16/18 07:00 BP 116/65 02/16/18 07:00 Pulse Ox 100 02/16/18 07:00 - Labs Result Diagrams: 02/16/18 07:23 02/16/18 07:23 Labs: Laboratory Results - last 24 hr 02/16/18 02/16/18 07:23 07:23 WBC 18.7 H RBC 3.59 L Hgb 10.5 L Hct 31.5 L MCV 87.7 MCH 29.3 MCHC 33.4 RDW 13.9 Plt Count 158 MPV 8.8 Neut % (Auto) 94.2 H Lymph % (Auto) 3.6 L [place] % (Auto) 2.0 Eos % (Auto) 0.0 Baso % (Auto) 0.2 Neut # (Auto) 17.6 H Lymph # (Auto) 0.7 L [place] # (Auto) 0.4 Eos # (Auto) 0.0 Baso # (Auto) 0.0 Neutrophils % (Manual) 88 H Band Neutrophils % 7 H Lymphocytes % (Manual) 3 L Monocytes % (Manual) 2 Toxic Granulation Present Platelet Estimate Normal Large Platelets Present Polychromasia Slight Hypochromasia (manual) Slight Poikilocytosis (manual Slight Anisocytosis (manual) Slight Ovalocytes Slight Sodium 139 Potassium 4.2 Chloride 103 Carbon Dioxide 28 Anion Gap 11 BUN 19 H Creatinine 0.6 L Est GFR ( Amer) > 60 Est GFR (Non-Af Amer) > 60 Random Glucose 147 H Calcium 9.2 Assessment & Plan (1) History of pneumonectomy Status: Acute (2) Pneumonia Status: Acute (3) Bronchiectasis Status: Acute (4) COPD (chronic obstructive pulmonary disease) Status: Acute - Assessment and Plan (Free Text) Plan: Continue antibiotics Bronchodilators Continue Advair Oxygen supplementation DVT/GI prophylaxis
[2018-02-17] MEDS: Albuterol-Ipratrop 3 mg / 0.5 (3 ml) UD INH SCH ×3 (02:00→21:37)
[2018-02-17] MEDS: Cefepime IV 1 gm in Dextrose 1 GM/50 ML BAG IVPB SCH ×3 (04:37→19:33)
[2018-02-17] MEDS: MethylPREDNISolone 40 mg Vial IVP SCH ×3 (05:40→22:03)
[2018-02-17] MEDS: Azithromycin 500 MG in Sodium Chloride 0.9% 250 ML IVPB SCH (10:55)
[2018-02-17] MEDS: Enoxaparin 40 mg Syringe SC SCH (10:55)
--- NOTE | 2018-02-17 12:46 | CP.PCM.PN ---
Subjective - Date & Time of Evaluation Date of Evaluation: 02/17/18 Time of Evaluation: 10:00 - Subjective Subjective: less fever coughing up brown sputum Objective - Vital Signs/Intake and Output Vital Signs (last 24 hours): Temp Pulse Resp BP Pulse Ox 99.0 F 77 18 127/69 99 02/17/18 07:00 02/17/18 08:26 02/17/18 07:00 02/17/18 07:00 02/17/18 07:00 - Medications Medications: Current Medications Acetaminophen (Tylenol 325mg Tab) 650 mg PO Q6 PRN PRN Reason: Fever >100.4 F Last Admin: 02/17/18 11:44 Dose: 650 mg Albuterol/Ipratropium (Duoneb 3 Mg/0.5 Mg (3 Ml) Ud) 3 ml INH RQ6 [facility] Last Admin: 02/17/18 08:37 Dose: 3 ml Enoxaparin Sodium (Lovenox) 40 mg SC DAILY [facility] Last Admin: 02/17/18 10:55 Dose: 40 mg Fluticasone/Vilanterol (Breo Ellipta 100-25 Mcg Inh) 1 puff INH RQ24 [facility] Azithromycin 500 mg/ Sodium (Chloride) 250 mls @ 250 mls/hr IVPB DAILY [facility]; Protocol Last Admin: 02/17/18 10:55 Dose: 250 mls/hr Cefepime HCl (Maxipime Iv 1 Gm Premix) 1 gm in 50 mls @ 100 mls/hr IVPB Q8H [facility]; Protocol Last Admin: 02/17/18 04:37 Dose: 100 mls/hr Methylprednisolone (Solu-Medrol) 40 mg IVP Q8 [facility] Last Admin: 02/17/18 05:40 Dose: 40 mg Montelukast Sodium (Singulair) 10 mg PO HS [facility] Last Admin: 02/16/18 21:38 Dose: 10 mg Tiotropium [place] (Spiriva) 1 mcg INH DAILY [facility] Last Admin: 02/16/18 13:09 Dose: Not Given Tramadol HCl (Ultram) 50 mg PO Q6 PRN PRN Reason: Pain, moderate (4-7) Last Admin: 02/15/18 20:31 Dose: 50 mg - Labs Labs: 02/16/18 07:23 02/16/18 07:23 - Constitutional Appears: Non-toxic, Chronically Ill - Head Exam Head Exam: NORMOCEPHALIC - Eye Exam Eye Exam: absent: Scleral icterus - ENT Exam ENT Exam: Mucous Membranes Dry - Neck Exam Neck Exam: absent: Lymphadenopathy - Respiratory Exam Respiratory Exam: Decreased Breath Sounds - Cardiovascular Exam Cardiovascular Exam: REGULAR RHYTHM - GI/Abdominal Exam GI & Abdominal Exam: Distended - Rectal Exam Rectal Exam: Deferred - Exam Exam: NORMAL INSPECTION - Extremities Exam Extremities Exam: absent: Pedal Edema - Back Exam Back Exam: absent: CVA tenderness (L), CVA tenderness (R) - Neurological Exam Neurological Exam: Alert, Awake, Oriented x3 Assessment and Plan (1) Pneumonia Status: Acute - Assessment and Plan (Free Text) Assessment: cont iv antibiotics pulm eval
[2018-02-17] MEDS: Tiotropium 18 mcg Cap For Inhalation INH SCH (13:00)
--- NOTE | 2018-02-17 18:31 | CP.PCM.PN ---
Subjective - Date & Time of Evaluation Date of Evaluation: 02/17/18 Time of Evaluation: 09:15 - Subjective Subjective: clinically same Objective - Vital Signs/Intake and Output Vital Signs (last 24 hours): Temp Pulse Resp BP Pulse Ox 98.3 F 88 20 133/66 98 02/17/18 16:00 02/17/18 16:00 02/17/18 16:00 02/17/18 16:00 02/17/18 16:00 - Medications Medications: Current Medications Acetaminophen (Tylenol 325mg Tab) 650 mg PO Q6 PRN PRN Reason: Fever >100.4 F Last Admin: 02/17/18 11:44 Dose: 650 mg Albuterol/Ipratropium (Duoneb 3 Mg/0.5 Mg (3 Ml) Ud) 3 ml INH RQ6 [facility] Last Admin: 02/17/18 08:37 Dose: 3 ml Enoxaparin Sodium (Lovenox) 40 mg SC DAILY [facility] Last Admin: 02/17/18 10:55 Dose: 40 mg Fluticasone/Vilanterol (Breo Ellipta 100-25 Mcg Inh) 1 puff INH RQ24 [facility] Azithromycin 500 mg/ Sodium (Chloride) 250 mls @ 250 mls/hr IVPB DAILY [facility]; Protocol Last Admin: 02/17/18 10:55 Dose: 250 mls/hr Cefepime HCl (Maxipime Iv 1 Gm Premix) 1 gm in 50 mls @ 100 mls/hr IVPB Q8H [facility]; Protocol Last Admin: 02/17/18 13:00 Dose: 100 mls/hr Methylprednisolone (Solu-Medrol) 40 mg IVP Q8 [facility] Last Admin: 02/17/18 14:58 Dose: 40 mg Montelukast Sodium (Singulair) 10 mg PO HS [facility] Last Admin: 02/16/18 21:38 Dose: 10 mg Tiotropium [place] (Spiriva) 1 mcg INH DAILY [facility] Last Admin: 02/17/18 13:00 Dose: Not Given Tramadol HCl (Ultram) 50 mg PO Q6 PRN PRN Reason: Pain, moderate (4-7) Last Admin: 02/15/18 20:31 Dose: 50 mg - Labs Labs: 02/16/18 07:23 02/16/18 07:23
--- NOTE | 2018-02-17 18:47 | CP.PCM.PN ---
Subjective - Date & Time of Evaluation Date of Evaluation: 02/17/18 Time of Evaluation: 18:47 - Subjective Subjective: Patient seen and examined No events overnight Objective - Vital Signs/Intake and Output Vital Signs (last 24 hours): Temp Pulse Resp BP Pulse Ox 98.3 F 88 20 133/66 98 02/17/18 16:00 02/17/18 16:00 02/17/18 16:00 02/17/18 16:00 02/17/18 16:00 - Medications Medications: Current Medications Acetaminophen (Tylenol 325mg Tab) 650 mg PO Q6 PRN PRN Reason: Fever >100.4 F Last Admin: 02/17/18 11:44 Dose: 650 mg Albuterol/Ipratropium (Duoneb 3 Mg/0.5 Mg (3 Ml) Ud) 3 ml INH RQ6 [facility] Last Admin: 02/17/18 08:37 Dose: 3 ml Enoxaparin Sodium (Lovenox) 40 mg SC DAILY [facility] Last Admin: 02/17/18 10:55 Dose: 40 mg Fluticasone/Vilanterol (Breo Ellipta 100-25 Mcg Inh) 1 puff INH RQ24 [facility] Azithromycin 500 mg/ Sodium (Chloride) 250 mls @ 250 mls/hr IVPB DAILY [facility]; Protocol Last Admin: 02/17/18 10:55 Dose: 250 mls/hr Cefepime HCl (Maxipime Iv 1 Gm Premix) 1 gm in 50 mls @ 100 mls/hr IVPB Q8H [facility]; Protocol Last Admin: 02/17/18 13:00 Dose: 100 mls/hr Methylprednisolone (Solu-Medrol) 40 mg IVP Q8 [facility] Last Admin: 02/17/18 14:58 Dose: 40 mg Montelukast Sodium (Singulair) 10 mg PO HS [facility] Last Admin: 02/16/18 21:38 Dose: 10 mg Tiotropium [place] (Spiriva) 1 mcg INH DAILY [facility] Last Admin: 02/17/18 13:00 Dose: Not Given Tramadol HCl (Ultram) 50 mg PO Q6 PRN PRN Reason: Pain, moderate (4-7) Last Admin: 02/15/18 20:31 Dose: 50 mg - Labs Labs: 02/16/18 07:23 02/16/18 07:23 - Head Exam Head Exam: NORMAL INSPECTION - Eye Exam Eye Exam: Normal appearance - ENT Exam ENT Exam: Mucous Membranes Moist - Respiratory Exam Additional comments: Absent breath sounds on the left, rhonchi on the right - Cardiovascular Exam Cardiovascular Exam: REGULAR RHYTHM - GI/Abdominal Exam GI & Abdominal Exam: Soft, Normal Bowel Sounds - Neurological Exam Neurological Exam: Alert, Oriented x3 Assessment and Plan (1) Bronchiectasis Status: Acute (2) COPD (chronic obstructive pulmonary disease) Status: Acute (3) History of pneumonectomy Status: Acute (4) Pneumonia Status: Acute - Assessment and Plan (Free Text) Plan: Continue antibiotics Bronchodilators Continue Advair Oxygen supplementation Follow cultures Continue supportive care DVT/GI prophylaxis
[2018-02-18] MEDS: Albuterol-Ipratrop 3 mg / 0.5 (3 ml) UD INH SCH ×3 (01:21→21:31)
[2018-02-18] MEDS: Cefepime IV 1 gm in Dextrose 1 GM/50 ML BAG IVPB SCH ×3 (04:26→19:05)
[2018-02-18] MEDS: MethylPREDNISolone 40 mg Vial IVP SCH ×3 (05:43→21:29)
[2018-02-18 06:25] LABS: HEMOGLOBIN 11.1 g/dL (11.0-16.0); LYMPH # 0.8 K/uL (1.0-4.3); LYMPH % 6.6 % (20.0-40.0); MEAN CELL VOLUME 87.8 fL (81.0-99.0); MEAN CORPUSCULAR HEMOGLOBIN 29.7 pg (27.0-31.0); MEAN CORPUSCULAR HGB CONC 33.9 g/dL (33.0-37.0); MEAN PLATELET VOLUME 8.4 fL (7.2-11.7); MONO # 0.2 K/uL (0.0-0.8); MONO % 1.9 % (0.0-10.0); NEUT # 11.3 K/uL (1.8-7.0); NEUT % 91.5 % (50.0-75.0); NRBC % 0.1 % (0.0-2.0); PLATELET COUNT 173 K/uL (130-400); RBC 3.73 Mil/uL (3.80-5.20); RED CELL DISTRIBUTION WIDTH 13.6 % (11.5-14.5); WHITE BLOOD COUNT 12.4 K/uL (4.8-10.8)
[2018-02-18 06:43] LABS: ALB/GLOB RATIO 1.2 (1.0-2.1); ALBUMIN 3.4 g/dL (3.5-5.0); ALT/SGPT 27 U/L (9-52); AST/SGOT 25 U/L (14-36); BLOOD UREA NITROGEN 21 mg/dL (7-17); CALCIUM 9.1 mg/dl (8.6-10.4); GFR NON-AFRICAN AMERICAN > 60
[2018-02-18 08:15] LABS: BANDS 1 % (0-2); LYMPHOCYTE 7 % (20-40); NEUTROPHIL 92 % (50-75); PLATELET ESTIMATE NORMAL (NORMAL); TOTAL CELLS COUNTED 100
--- NOTE | 2018-02-18 11:44 | CP.PCM.PN ---
Subjective - Date & Time of Evaluation Date of Evaluation: 02/18/18 Time of Evaluation: 09:45 - Subjective Subjective: clinically same Objective - Vital Signs/Intake and Output Vital Signs (last 24 hours): Temp Pulse Resp BP Pulse Ox 98.1 F 65 18 143/73 97 02/18/18 07:00 02/18/18 07:00 02/18/18 07:00 02/18/18 07:00 02/18/18 07:00 Intake and Output: 02/18/18 02/18/18 06:59 18:59 Intake Total 50 Balance 50 - Medications Medications: Current Medications Acetaminophen (Tylenol 325mg Tab) 650 mg PO Q6 PRN PRN Reason: Fever >100.4 F Last Admin: 02/18/18 00:25 Dose: 650 mg Albuterol/Ipratropium (Duoneb 3 Mg/0.5 Mg (3 Ml) Ud) 3 ml INH RQ6 [facility] Last Admin: 02/18/18 07:44 Dose: 3 ml Enoxaparin Sodium (Lovenox) 40 mg SC DAILY [facility] Last Admin: 02/17/18 10:55 Dose: 40 mg Fluticasone/Vilanterol (Breo Ellipta 100-25 Mcg Inh) 1 puff INH RQ24 [facility] Azithromycin 500 mg/ Sodium (Chloride) 250 mls @ 250 mls/hr IVPB DAILY [facility]; Protocol Last Admin: 02/17/18 10:55 Dose: 250 mls/hr Cefepime HCl (Maxipime Iv 1 Gm Premix) 1 gm in 50 mls @ 100 mls/hr IVPB Q8H [facility]; Protocol Last Admin: 02/18/18 04:26 Dose: 100 mls/hr Methylprednisolone (Solu-Medrol) 40 mg IVP Q8 [facility] Last Admin: 02/18/18 05:43 Dose: 40 mg Montelukast Sodium (Singulair) 10 mg PO HS [facility] Last Admin: 02/17/18 22:03 Dose: 10 mg Tiotropium [place] (Spiriva) 1 mcg INH DAILY [facility] Last Admin: 02/17/18 13:00 Dose: Not Given Tramadol HCl (Ultram) 50 mg PO Q6 PRN PRN Reason: Pain, moderate (4-7) Last Admin: 02/15/18 20:31 Dose: 50 mg - Labs Labs: 02/18/18 06:19 11/20/18 06:19 - Constitutional Appears: Well - Head Exam Head Exam: ATRAUMATIC, NORMAL INSPECTION, NORMOCEPHALIC - Eye Exam Eye Exam: EOMI, Normal appearance, PERRL Pupil Exam: NORMAL ACCOMODATION, PERRL - ENT Exam ENT Exam: Mucous Membranes Moist, Normal Exam - Neck Exam Neck Exam: Full ROM, Normal Inspection. absent: Lymphadenopathy - Respiratory Exam Respiratory Exam: Decreased Breath Sounds - Cardiovascular Exam Cardiovascular Exam: REGULAR RHYTHM, +S1, +S2 - GI/Abdominal Exam GI & Abdominal Exam: Soft, Diminished Bowel Sounds - Rectal Exam Rectal Exam: Deferred
[2018-02-18] MEDS: Enoxaparin 40 mg Syringe SC SCH (12:05)
--- NOTE | 2018-02-18 12:30 | CP.PCM.PN ---
Subjective - Date & Time of Evaluation Date of Evaluation: 02/18/18 Time of Evaluation: 10:00 - Subjective Subjective: slow progress Objective - Vital Signs/Intake and Output Vital Signs (last 24 hours): Temp Pulse Resp BP Pulse Ox 98.1 F 65 18 143/73 97 02/18/18 07:00 02/18/18 07:00 02/18/18 07:00 02/18/18 07:00 02/18/18 07:00 Intake and Output: 02/18/18 02/18/18 06:59 18:59 Intake Total 50 Balance 50 - Medications Medications: Current Medications Acetaminophen (Tylenol 325mg Tab) 650 mg PO Q6 PRN PRN Reason: Fever >100.4 F Last Admin: 02/18/18 00:25 Dose: 650 mg Albuterol/Ipratropium (Duoneb 3 Mg/0.5 Mg (3 Ml) Ud) 3 ml INH RQ6 [facility] Last Admin: 02/18/18 07:44 Dose: 3 ml Enoxaparin Sodium (Lovenox) 40 mg SC DAILY [facility] Last Admin: 02/18/18 12:05 Dose: 40 mg Fluticasone/Vilanterol (Breo Ellipta 100-25 Mcg Inh) 1 puff INH RQ24 [facility] Azithromycin 500 mg/ Sodium (Chloride) 250 mls @ 250 mls/hr IVPB DAILY [facility]; Protocol Last Admin: 02/17/18 10:55 Dose: 250 mls/hr Cefepime HCl (Maxipime Iv 1 Gm Premix) 1 gm in 50 mls @ 100 mls/hr IVPB Q8H [facility]; Protocol Last Admin: 02/18/18 12:04 Dose: 100 mls/hr Methylprednisolone (Solu-Medrol) 40 mg IVP Q8 [facility] Last Admin: 02/18/18 05:43 Dose: 40 mg Montelukast Sodium (Singulair) 10 mg PO HS [facility] Last Admin: 02/17/18 22:03 Dose: 10 mg Tiotropium [place] (Spiriva) 1 mcg INH DAILY [facility] Last Admin: 02/17/18 13:00 Dose: Not Given Tramadol HCl (Ultram) 50 mg PO Q6 PRN PRN Reason: Pain, moderate (4-7) Last Admin: 02/18/18 12:15 Dose: 50 mg - Labs Labs: 02/18/18 06:19 11/20/18 06:19 - Constitutional Appears: Non-toxic, Chronically Ill - Head Exam Head Exam: NORMOCEPHALIC - Eye Exam Eye Exam: absent: Scleral icterus - ENT Exam ENT Exam: Mucous Membranes Dry - Neck Exam Neck Exam: absent: Lymphadenopathy - Respiratory Exam Respiratory Exam: Decreased Breath Sounds - Cardiovascular Exam Cardiovascular Exam: REGULAR RHYTHM - GI/Abdominal Exam GI & Abdominal Exam: Distended, Soft - Rectal Exam Rectal Exam: Deferred - Exam Exam: NORMAL INSPECTION - Extremities Exam Extremities Exam: absent: Pedal Edema - Back Exam Back Exam: absent: CVA tenderness (L), CVA tenderness (R) - Neurological Exam Neurological Exam: Alert, Awake, Oriented x3 - Psychiatric Exam Psychiatric exam: Depressed - Skin Skin Exam: Dry Assessment and Plan (1) Pneumonia Status: Acute - Assessment and Plan (Free Text) Assessment: cont iv rx and bronchodilators
[2018-02-18] MEDS: Azithromycin 500 MG in Sodium Chloride 0.9% 250 ML IVPB SCH (14:17)
--- NOTE | 2018-02-18 16:01 | CP.PCM.PN ---
Subjective - Date & Time of Evaluation Date of Evaluation: 02/18/18 Time of Evaluation: 16:01 - Subjective Subjective: Patient seen and examined Reports improved dyspnea Objective - Vital Signs/Intake and Output Vital Signs (last 24 hours): Temp Pulse Resp BP Pulse Ox 98.0 F 85 18 130/72 100 02/18/18 15:00 02/18/18 15:00 02/18/18 15:00 02/18/18 15:00 02/18/18 15:00 Intake and Output: 02/18/18 02/18/18 06:59 18:59 Intake Total 50 Balance 50 - Medications Medications: Current Medications Acetaminophen (Tylenol 325mg Tab) 650 mg PO Q6 PRN PRN Reason: Fever >100.4 F Last Admin: 02/18/18 00:25 Dose: 650 mg Albuterol/Ipratropium (Duoneb 3 Mg/0.5 Mg (3 Ml) Ud) 3 ml INH RQ6 [facility] Last Admin: 02/18/18 07:44 Dose: 3 ml Enoxaparin Sodium (Lovenox) 40 mg SC DAILY [facility] Last Admin: 02/18/18 12:05 Dose: 40 mg Fluticasone/Vilanterol (Breo Ellipta 100-25 Mcg Inh) 1 puff INH RQ24 [facility] Azithromycin 500 mg/ Sodium (Chloride) 250 mls @ 250 mls/hr IVPB DAILY [facility]; Protocol Last Admin: 02/18/18 14:17 Dose: 250 mls/hr Cefepime HCl (Maxipime Iv 1 Gm Premix) 1 gm in 50 mls @ 100 mls/hr IVPB Q8H [facility]; Protocol Last Admin: 02/18/18 12:04 Dose: 100 mls/hr Methylprednisolone (Solu-Medrol) 40 mg IVP Q8 [facility] Last Admin: 02/18/18 13:30 Dose: 40 mg Montelukast Sodium (Singulair) 10 mg PO HS [facility] Last Admin: 02/17/18 22:03 Dose: 10 mg Tiotropium [place] (Spiriva) 1 mcg INH DAILY [facility] Last Admin: 02/17/18 13:00 Dose: Not Given Tramadol HCl (Ultram) 50 mg PO Q6 PRN PRN Reason: Pain, moderate (4-7) Last Admin: 02/18/18 12:15 Dose: 50 mg - Labs Labs: 02/18/18 06:19 02/18/18 06:19 - Head Exam Head Exam: NORMAL INSPECTION - Eye Exam Eye Exam: Normal appearance - ENT Exam ENT Exam: Mucous Membranes Moist - Respiratory Exam Respiratory Exam: Clear to Ausculation Bilateral - Cardiovascular Exam Cardiovascular Exam: REGULAR RHYTHM - GI/Abdominal Exam GI & Abdominal Exam: Soft, Normal Bowel Sounds - Extremities Exam Extremities Exam: Normal Inspection - Neurological Exam Neurological Exam: Alert, Oriented x3 - Psychiatric Exam Psychiatric exam: Normal Affect, Normal Mood Assessment and Plan (1) Bronchiectasis Status: Acute (2) COPD (chronic obstructive pulmonary disease) Status: Acute (3) History of pneumonectomy Status: Acute (4) Pneumonia Status: Acute - Assessment and Plan (Free Text) Plan: Continue antibiotics Bronchodilators Advair Chest PT Incentive spirometry Continue supportive care DVT/GI prophylaxis
--- NOTE | 2018-02-18 18:12 | CT ---
Date of service: 02/18/2018 PROCEDURE: CT HEAD WITHOUT CONTRAST. HISTORY: intractable MARTINES's COMPARISON: Noncontrast head CT performed 02/12/12 TECHNIQUE: Axial computed tomography images were obtained through the head/brain without intravenous contrast. Radiation dose: Total exam DLP = 924.55 mGy-cm. This CT exam was performed using one or more of the following dose reduction techniques: Automated exposure control, adjustment of the mA and/or kV according to patient size, and/or use of iterative reconstruction technique. FINDINGS: HEMORRHAGE: No intracranial hemorrhage. BRAIN: No mass effect or edema. Millan-white matter differentiation appears intact. Please note that MRI with diffusion imaging is more sensitive in the detection of acute ischemic event. VENTRICLES: No hydrocephalus. CALVARIUM: Unremarkable. PARANASAL SINUSES: Unremarkable as visualized. No significant inflammatory changes. MASTOID AIR CELLS: Unremarkable as visualized. No inflammatory changes. OTHER FINDINGS: None. IMPRESSION: No acute intracranial pathology identified.
--- NOTE | 2018-02-18 22:22 | CARD ---
APPROVED REPORT Date of service: 02/14/2018 EKG Measurement Heart [id number] SC 144P [id number] <Conclusion> Sinus tachycardia with premature atrial complexes Rightward axis Septal infarct, age undetermined Abnormal ECG
[2018-02-19] MEDS: Albuterol-Ipratrop 3 mg / 0.5 (3 ml) UD INH SCH ×4 (02:50→20:12)
[2018-02-19] MEDS: MethylPREDNISolone 40 mg Vial IVP SCH ×3 (05:07→21:11)
[2018-02-19] MEDS: Cefepime IV 1 gm in Dextrose 1 GM/50 ML BAG IVPB SCH ×3 (05:07→21:11)
[2018-02-19 08:25] LABS: BASO % 0.1 % (0.0-2.0); HEMOGLOBIN 12.4 g/dL (11.0-16.0); LYMPH # 0.9 K/uL (1.0-4.3); LYMPH % 7.6 % (20.0-40.0); MEAN CELL VOLUME 86.9 fL (81.0-99.0); MEAN CORPUSCULAR HEMOGLOBIN 29.4 pg (27.0-31.0); MEAN CORPUSCULAR HGB CONC 33.9 g/dL (33.0-37.0); MEAN PLATELET VOLUME 8.2 fL (7.2-11.7); MONO # 0.3 K/uL (0.0-0.8); MONO % 2.6 % (0.0-10.0); NEUT # 10.3 K/uL (1.8-7.0); NEUT % 89.7 % (50.0-75.0); NRBC % 0.1 % (0.0-2.0); PLATELET COUNT 207 K/uL (130-400); RBC 4.21 Mil/uL (3.80-5.20); RED CELL DISTRIBUTION WIDTH 13.4 % (11.5-14.5); WHITE BLOOD COUNT 11.5 K/uL (4.8-10.8)
[2018-02-19 08:50] LABS: ALB/GLOB RATIO 1.3 (1.0-2.1); ALBUMIN 3.8 g/dL (3.5-5.0); ALT/SGPT 25 U/L (9-52); AST/SGOT 20 U/L (14-36); BLOOD UREA NITROGEN 19 mg/dL (7-17); CALCIUM 9.2 mg/dl (8.6-10.4); GFR NON-AFRICAN AMERICAN > 60
[2018-02-19] MEDS: Enoxaparin 40 mg Syringe SC SCH (09:15)
[2018-02-19] MEDS: Tiotropium 18 mcg Cap For Inhalation INH SCH (09:21)
[2018-02-19] MEDS: Azithromycin 500 MG in Sodium Chloride 0.9% 250 ML IVPB SCH (10:16)
[2018-02-19 10:22] LABS: LYMPHOCYTE 10 % (20-40); MONOCYTE 2 % (0-10); NEUTROPHIL 88 % (50-75); PLATELET ESTIMATE NORMAL (NORMAL); TOTAL CELLS COUNTED 100
--- NOTE | 2018-02-19 12:53 | CP.PCM.PN ---
Subjective - Date & Time of Evaluation Date of Evaluation: 02/19/18 Time of Evaluation: 12:53 - Subjective Subjective: Patient is seen and examined No events overnight Objective - Vital Signs/Intake and Output Vital Signs (last 24 hours): Temp Pulse Resp BP Pulse Ox 97.8 F 66 20 123/68 98 02/19/18 07:11 02/19/18 12:00 02/19/18 07:11 02/19/18 11:32 02/19/18 07:11 Intake and Output: 02/19/18 02/19/18 06:59 18:59 Intake Total 530 Balance 530 - Medications Medications: Current Medications Acetaminophen (Tylenol 325mg Tab) 650 mg PO Q6 PRN PRN Reason: Fever >100.4 F Last Admin: 02/18/18 00:25 Dose: 650 mg Albuterol/Ipratropium (Duoneb 3 Mg/0.5 Mg (3 Ml) Ud) 3 ml INH RQ6 [facility] Last Admin: 02/19/18 07:30 Dose: 3 ml Enoxaparin Sodium (Lovenox) 40 mg SC DAILY [facility] Last Admin: 02/19/18 09:15 Dose: 40 mg Fluticasone/Vilanterol (Breo Ellipta 100-25 Mcg Inh) 1 puff INH RQ24 [facility] Azithromycin 500 mg/ Sodium (Chloride) 250 mls @ 250 mls/hr IVPB DAILY [facility]; Protocol Last Admin: 02/19/18 10:16 Dose: 250 mls/hr Cefepime HCl (Maxipime Iv 1 Gm Premix) 1 gm in 50 mls @ 100 mls/hr IVPB Q8H [facility]; Protocol Last Admin: 02/19/18 11:34 Dose: 100 mls/hr Methylprednisolone (Solu-Medrol) 40 mg IVP Q8 [facility] Last Admin: 02/19/18 05:07 Dose: 40 mg Metoprolol Tartrate (Lopressor) 25 mg PO BID [facility] Last Admin: 02/19/18 11:32 Dose: 25 mg Montelukast Sodium (Singulair) 10 mg PO HS [facility] Last Admin: 02/18/18 21:29 Dose: 10 mg Tiotropium [place] (Spiriva) 1 mcg INH DAILY [facility] Last Admin: 02/17/18 13:00 Dose: Not Given Tramadol HCl (Ultram) 50 mg PO Q6 PRN PRN Reason: Pain, moderate (4-7) Last Admin: 02/18/18 12:15 Dose: 50 mg - Labs Labs: 02/19/18 08:20 02/19/18 08:20 - Head Exam Head Exam: NORMAL INSPECTION - Eye Exam Eye Exam: Normal appearance - ENT Exam ENT Exam: Mucous Membranes Moist - Respiratory Exam Respiratory Exam: Clear to Ausculation Bilateral - Cardiovascular Exam Cardiovascular Exam: REGULAR RHYTHM, +S1, +S2 - GI/Abdominal Exam GI & Abdominal Exam: Soft, Normal Bowel Sounds Assessment and Plan (1) Bronchiectasis Status: Acute (2) COPD (chronic obstructive pulmonary disease) Status: Acute (3) History of pneumonectomy Status: Acute (4) Pneumonia Status: Acute - Assessment and Plan (Free Text) Plan: Patient continues to improve clinically Continue antibiotics Bronchodilators Continue Advair DVT/GI prophylax
--- NOTE | 2018-02-19 14:15 | CP.PCM.PN ---
Subjective - Date & Time of Evaluation Date of Evaluation: 02/19/18 Time of Evaluation: 10:30 - Subjective Subjective: clinically same Objective - Vital Signs/Intake and Output Vital Signs (last 24 hours): Temp Pulse Resp BP Pulse Ox 97.8 F 66 20 123/68 98 02/19/18 07:11 02/19/18 12:00 02/19/18 07:11 02/19/18 11:32 02/19/18 07:11 Intake and Output: 02/19/18 02/19/18 06:59 18:59 Intake Total 530 Balance 530 - Medications Medications: Current Medications Acetaminophen (Tylenol 325mg Tab) 650 mg PO Q6 PRN PRN Reason: Fever >100.4 F Last Admin: 02/18/18 00:25 Dose: 650 mg Albuterol/Ipratropium (Duoneb 3 Mg/0.5 Mg (3 Ml) Ud) 3 ml INH RQ6 [facility] Last Admin: 02/19/18 13:21 Dose: 3 ml Enoxaparin Sodium (Lovenox) 40 mg SC DAILY [facility] Last Admin: 02/19/18 09:15 Dose: 40 mg Fluticasone/Vilanterol (Breo Ellipta 100-25 Mcg Inh) 1 puff INH RQ24 [facility] Azithromycin 500 mg/ Sodium (Chloride) 250 mls @ 250 mls/hr IVPB DAILY [facility]; Protocol Last Admin: 02/19/18 10:16 Dose: 250 mls/hr Cefepime HCl (Maxipime Iv 1 Gm Premix) 1 gm in 50 mls @ 100 mls/hr IVPB Q8H [facility]; Protocol Last Admin: 02/19/18 11:34 Dose: 100 mls/hr Methylprednisolone (Solu-Medrol) 40 mg IVP Q8 [facility] Last Admin: 02/19/18 13:17 Dose: 40 mg Metoprolol Tartrate (Lopressor) 25 mg PO BID [facility] Last Admin: 02/19/18 11:32 Dose: 25 mg Montelukast Sodium (Singulair) 10 mg PO HS [facility] Last Admin: 02/18/18 21:29 Dose: 10 mg Tiotropium [place] (Spiriva) 1 mcg INH DAILY [facility] Last Admin: 02/19/18 09:21 Dose: Not Given Tramadol HCl (Ultram) 50 mg PO Q6 PRN PRN Reason: Pain, moderate (4-7) Last Admin: 02/18/18 12:15 Dose: 50 mg - Labs Labs: 02/19/18 08:20 02/19/18 08:20 - Constitutional Appears: Well - Head Exam Head Exam: ATRAUMATIC, NORMAL INSPECTION, NORMOCEPHALIC - Eye Exam Eye Exam: EOMI, Normal appearance, PERRL Pupil Exam: NORMAL ACCOMODATION, PERRL - ENT Exam ENT Exam: Mucous Membranes Moist, Normal Exam - Neck Exam Neck Exam: Full ROM, Normal Inspection. absent: Lymphadenopathy - Respiratory Exam Respiratory Exam: Decreased Breath Sounds - Cardiovascular Exam Cardiovascular Exam: REGULAR RHYTHM, +S1, +S2 - GI/Abdominal Exam GI & Abdominal Exam: Soft, Diminished Bowel Sounds - Rectal Exam Rectal Exam: Deferred
--- NOTE | 2018-02-19 18:25 | CP.PCM.PN ---
Subjective - Date & Time of Evaluation Date of Evaluation: 02/19/18 Time of Evaluation: 11:00 - Subjective Subjective: cultures neg iv rx in progress c/o cough and weakness Objective - Vital Signs/Intake and Output Vital Signs (last 24 hours): Temp Pulse Resp BP Pulse Ox 98.6 F 84 18 134/71 95 02/19/18 15:00 02/19/18 18:16 02/19/18 15:00 02/19/18 18:17 02/19/18 15:00 Intake and Output: 02/19/18 02/19/18 06:59 18:59 Intake Total 530 Balance 530 - Medications Medications: Current Medications Acetaminophen (Tylenol 325mg Tab) 650 mg PO Q6 PRN PRN Reason: Fever >100.4 F Last Admin: 02/19/18 16:52 Dose: 650 mg Albuterol/Ipratropium (Duoneb 3 Mg/0.5 Mg (3 Ml) Ud) 3 ml INH RQ6 [facility] Last Admin: 02/19/18 13:21 Dose: 3 ml Enoxaparin Sodium (Lovenox) 40 mg SC DAILY [facility] Last Admin: 02/19/18 09:15 Dose: 40 mg Fluticasone/Vilanterol (Breo Ellipta 100-25 Mcg Inh) 1 puff INH RQ24 [facility] Azithromycin 500 mg/ Sodium (Chloride) 250 mls @ 250 mls/hr IVPB DAILY [facility]; Protocol Last Admin: 02/19/18 10:16 Dose: 250 mls/hr Cefepime HCl (Maxipime Iv 1 Gm Premix) 1 gm in 50 mls @ 100 mls/hr IVPB Q8H [facility]; Protocol Last Admin: 02/19/18 11:34 Dose: 100 mls/hr Methylprednisolone (Solu-Medrol) 40 mg IVP Q8 [facility] Last Admin: 02/19/18 13:17 Dose: 40 mg Metoprolol Tartrate (Lopressor) 25 mg PO BID [facility] Last Admin: 02/19/18 18:17 Dose: 25 mg Montelukast Sodium (Singulair) 10 mg PO HS [facility] Last Admin: 02/18/18 21:29 Dose: 10 mg Tiotropium [place] (Spiriva) 1 mcg INH DAILY [facility] Last Admin: 02/19/18 09:21 Dose: Not Given Tramadol HCl (Ultram) 50 mg PO Q6 PRN PRN Reason: Pain, moderate (4-7) Last Admin: 02/18/18 12:15 Dose: 50 mg - Labs Labs: 02/19/18 08:20 02/19/18 08:20 - Constitutional Appears: Non-toxic, Chronically Ill - Head Exam Head Exam: NORMOCEPHALIC - Eye Exam Eye Exam: PERRL - ENT Exam ENT Exam: Mucous Membranes Dry - Neck Exam Neck Exam: absent: Lymphadenopathy - Respiratory Exam Respiratory Exam: Decreased Breath Sounds - Cardiovascular Exam Cardiovascular Exam: REGULAR RHYTHM - GI/Abdominal Exam GI & Abdominal Exam: Distended, Soft - Rectal Exam Rectal Exam: Deferred - Exam Exam: NORMAL INSPECTION - Extremities Exam Extremities Exam: absent: Pedal Edema - Back Exam Back Exam: absent: CVA tenderness (L), CVA tenderness (R) - Neurological Exam Neurological Exam: Alert, Awake, Oriented x3 - Psychiatric Exam Psychiatric exam: Depressed - Skin Skin Exam: Dry Assessment and Plan (1) Pneumonia Status: Acute - Assessment and Plan (Free Text) Assessment: iv rx renewed
[2018-02-20] MEDS: Cefepime IV 1 gm in Dextrose 1 GM/50 ML BAG IVPB SCH ×3 (03:56→19:44)
[2018-02-20] MEDS: MethylPREDNISolone 40 mg Vial IVP SCH ×3 (05:44→21:56)
[2018-02-20 06:55] LABS: BASO % 0.1 % (0.0-2.0); HEMOGLOBIN 12.9 g/dL (11.0-16.0); LYMPH % 7.1 % (20.0-40.0); MEAN CELL VOLUME 86.6 fL (81.0-99.0); MEAN CORPUSCULAR HEMOGLOBIN 29.8 pg (27.0-31.0); MEAN CORPUSCULAR HGB CONC 34.4 g/dL (33.0-37.0); MEAN PLATELET VOLUME 8.4 fL (7.2-11.7); MONO # 0.5 K/uL (0.0-0.8); MONO % 3.4 % (0.0-10.0); NEUT % 89.4 % (50.0-75.0); NRBC % 0.1 % (0.0-2.0); PLATELET COUNT 234 K/uL (130-400); RBC 4.32 Mil/uL (3.80-5.20); RED CELL DISTRIBUTION WIDTH 13.5 % (11.5-14.5); WHITE BLOOD COUNT 14.5 K/uL (4.8-10.8)
[2018-02-20 07:04] LABS: ALB/GLOB RATIO 1.3 (1.0-2.1); ALBUMIN 3.9 g/dL (3.5-5.0); ALT/SGPT 32 U/L (9-52); AST/SGOT 33 U/L (14-36); BLOOD UREA NITROGEN 26 mg/dL (7-17); CALCIUM 9.3 mg/dl (8.6-10.4); GFR NON-AFRICAN AMERICAN > 60
[2018-02-20] MEDS: Enoxaparin 40 mg Syringe SC SCH (09:28)
[2018-02-20] MEDS: Azithromycin 500 MG in Sodium Chloride 0.9% 250 ML IVPB SCH (09:29)
[2018-02-20 09:42] LABS: LYMPHOCYTE 9 % (20-40); MONOCYTE 7 % (0-10); NEUTROPHIL 84 % (50-75); TOTAL CELLS COUNTED 100
[2018-02-20 09:43] LABS: ANISOCYTOSIS SLIGHT; LARGE PLATELETS PRESENT; PLATELET ESTIMATE NORMAL (NORMAL); TOXIC GRANULATION PRESENT
[2018-02-20 09:44] LABS: HYPOCHROMIC SLIGHT; POLYCHROMIC SLIGHT
[2018-02-20] MEDS: Tiotropium 18 mcg Cap For Inhalation INH SCH (11:38)
--- NOTE | 2018-02-20 15:30 | CARD ---
APPROVED REPORT Date of service: 02/19/2018 EKG Measurement Heart [id number] CT 124P65 [id number] <Conclusion> Normal sinus rhythm Left atrial enlargement Rightward axis Incomplete right bundle branch block Borderline ECG
--- NOTE | 2018-02-20 19:41 | CP.PCM.PN ---
Subjective - Date & Time of Evaluation Date of Evaluation: 02/20/18 Time of Evaluation: 10:00 - Subjective Subjective: clinically same Objective - Vital Signs/Intake and Output Vital Signs (last 24 hours): Temp Pulse Resp BP Pulse Ox 97.9 F 94 H 20 127/68 95 02/20/18 15:00 02/20/18 16:00 02/20/18 15:00 02/20/18 17:34 02/20/18 15:00 - Medications Medications: Current Medications Acetaminophen (Tylenol 325mg Tab) 650 mg PO Q6 PRN PRN Reason: Fever >100.4 F Last Admin: 02/19/18 16:52 Dose: 650 mg Enoxaparin Sodium (Lovenox) 40 mg SC DAILY [facility] Last Admin: 02/20/18 09:28 Dose: 40 mg Fluticasone/Vilanterol (Breo Ellipta 100-25 Mcg Inh) 1 puff INH RQ24 [facility] Cefepime HCl (Maxipime Iv 1 Gm Premix) 1 gm in 50 mls @ 100 mls/hr IVPB Q8H [facility]; Protocol Last Admin: 02/20/18 13:13 Dose: 100 mls/hr Methylprednisolone (Solu-Medrol) 40 mg IVP Q8 [facility] Last Admin: 02/20/18 13:14 Dose: 40 mg Metoprolol Tartrate (Lopressor) 25 mg PO BID [facility] Last Admin: 02/20/18 17:34 Dose: 25 mg Montelukast Sodium (Singulair) 10 mg PO HS [facility] Last Admin: 02/19/18 21:12 Dose: 10 mg Tiotropium [place] (Spiriva) 1 mcg INH DAILY [facility] Last Admin: 02/20/18 11:38 Dose: Not Given Tramadol HCl (Ultram) 50 mg PO Q6 PRN PRN Reason: Pain, moderate (4-7) Last Admin: 02/18/18 12:15 Dose: 50 mg - Labs Labs: 02/20/18 06:42 02/20/18 06:42 - Constitutional Appears: Well - Head Exam Head Exam: ATRAUMATIC, NORMAL INSPECTION, NORMOCEPHALIC - Eye Exam Eye Exam: EOMI, Normal appearance, PERRL Pupil Exam: NORMAL ACCOMODATION, PERRL - ENT Exam ENT Exam: Mucous Membranes Moist, Normal Exam - Neck Exam Neck Exam: Full ROM, Normal Inspection. absent: Lymphadenopathy - Respiratory Exam Respiratory Exam: Decreased Breath Sounds - Cardiovascular Exam Cardiovascular Exam: REGULAR RHYTHM, +S1, +S2 - GI/Abdominal Exam GI & Abdominal Exam: Soft, Diminished Bowel Sounds - Rectal Exam Rectal Exam: Deferred
[2018-02-21] MEDS: Cefepime IV 1 gm in Dextrose 1 GM/50 ML BAG IVPB SCH ×3 (04:13→21:00)
[2018-02-21] MEDS: MethylPREDNISolone 40 mg Vial IVP SCH ×3 (05:19→21:45)
[2018-02-21] MEDS: Enoxaparin 40 mg Syringe SC SCH (09:40)
[2018-02-21] MEDS: Tiotropium 18 mcg Cap For Inhalation INH SCH (13:39)
--- NOTE | 2018-02-21 15:34 | CP.PCM.PN ---
Subjective - Date & Time of Evaluation Date of Evaluation: 02/21/18 Time of Evaluation: 15:32 - Subjective Subjective: Patient is seen and examined No events overnight Objective - Vital Signs/Intake and Output Vital Signs (last 24 hours): Temp Pulse Resp BP Pulse Ox 98.1 F 71 20 129/72 97 02/21/18 08:00 02/21/18 08:00 02/21/18 08:00 02/21/18 09:40 02/21/18 08:00 - Medications Medications: Current Medications Acetaminophen (Tylenol 325mg Tab) 650 mg PO Q6 PRN PRN Reason: Fever >100.4 F Last Admin: 02/19/18 16:52 Dose: 650 mg Enoxaparin Sodium (Lovenox) 40 mg SC DAILY [facility] Last Admin: 02/21/18 09:40 Dose: 40 mg Fluticasone/Vilanterol (Breo Ellipta 100-25 Mcg Inh) 1 puff INH RQ24 [facility] Cefepime HCl (Maxipime Iv 1 Gm Premix) 1 gm in 50 mls @ 100 mls/hr IVPB Q8H [facility]; Protocol Last Admin: 02/21/18 12:39 Dose: 100 mls/hr Methylprednisolone (Solu-Medrol) 40 mg IVP Q8 [facility] Last Admin: 02/21/18 13:28 Dose: 40 mg Metoprolol Tartrate (Lopressor) 25 mg PO BID [facility] Last Admin: 02/21/18 09:40 Dose: 25 mg Montelukast Sodium (Singulair) 10 mg PO HS [facility] Last Admin: 02/20/18 21:56 Dose: 10 mg Tiotropium [place] (Spiriva) 1 mcg INH DAILY [facility] Last Admin: 02/21/18 13:39 Dose: Not Given Tramadol HCl (Ultram) 50 mg PO Q6 PRN PRN Reason: Pain, moderate (4-7) Last Admin: 02/18/18 12:15 Dose: 50 mg - Labs Labs: 02/20/18 06:42 02/20/18 06:42 - Head Exam Head Exam: NORMAL INSPECTION - Eye Exam Eye Exam: Normal appearance - ENT Exam ENT Exam: Mucous Membranes Moist - Respiratory Exam Respiratory Exam: Decreased Breath Sounds - Cardiovascular Exam Cardiovascular Exam: REGULAR RHYTHM, +S1, +S2 - GI/Abdominal Exam GI & Abdominal Exam: Soft, Normal Bowel Sounds - Extremities Exam Extremities Exam: Normal Inspection Assessment and Plan (1) Bronchiectasis Status: Acute (2) COPD (chronic obstructive pulmonary disease) Status: Acute (3) History of pneumonectomy Status: Acute (4) Pneumonia Status: Acute - Assessment and Plan (Free Text) Plan: Continue ABx Advair Bronchodilators Chest PT DVT/GI prophalaxis
--- NOTE | 2018-02-21 17:23 | CP.PCM.PN ---
Subjective - Date & Time of Evaluation Date of Evaluation: 02/21/18 Time of Evaluation: 08:00 - Subjective Subjective: IV rx in progress improving slowly Objective - Vital Signs/Intake and Output Vital Signs (last 24 hours): Temp Pulse Resp BP Pulse Ox 99 F 74 18 124/71 96 02/21/18 16:00 02/21/18 16:00 02/21/18 16:00 02/21/18 16:00 02/21/18 16:00 Intake and Output: 02/21/18 02/21/18 06:59 18:59 Intake Total 580 Balance 580 - Medications Medications: Current Medications Acetaminophen (Tylenol 325mg Tab) 650 mg PO Q6 PRN PRN Reason: Fever >100.4 F Last Admin: 02/19/18 16:52 Dose: 650 mg Enoxaparin Sodium (Lovenox) 40 mg SC DAILY [facility] Last Admin: 02/21/18 09:40 Dose: 40 mg Fluticasone/Vilanterol (Breo Ellipta 100-25 Mcg Inh) 1 puff INH RQ24 [facility] Cefepime HCl (Maxipime Iv 1 Gm Premix) 1 gm in 50 mls @ 100 mls/hr IVPB Q8H [facility]; Protocol Last Admin: 02/21/18 12:39 Dose: 100 mls/hr Methylprednisolone (Solu-Medrol) 40 mg IVP Q8 [facility] Last Admin: 02/21/18 13:28 Dose: 40 mg Metoprolol Tartrate (Lopressor) 25 mg PO BID [facility] Last Admin: 02/21/18 09:40 Dose: 25 mg Montelukast Sodium (Singulair) 10 mg PO HS [facility] Last Admin: 02/20/18 21:56 Dose: 10 mg Tiotropium [place] (Spiriva) 1 mcg INH DAILY [facility] Last Admin: 02/21/18 13:39 Dose: Not Given Tramadol HCl (Ultram) 50 mg PO Q6 PRN PRN Reason: Pain, moderate (4-7) Last Admin: 02/18/18 12:15 Dose: 50 mg - Labs Labs: 02/20/18 06:42 02/20/18 06:42 - Constitutional Appears: Non-toxic, Chronically Ill - Head Exam Head Exam: NORMOCEPHALIC - Eye Exam Eye Exam: absent: Scleral icterus - ENT Exam ENT Exam: Mucous Membranes Dry - Neck Exam Neck Exam: absent: Lymphadenopathy - Respiratory Exam Respiratory Exam: Decreased Breath Sounds - Cardiovascular Exam Cardiovascular Exam: REGULAR RHYTHM - GI/Abdominal Exam GI & Abdominal Exam: Distended, Soft - Rectal Exam Rectal Exam: Deferred - Exam Exam: NORMAL INSPECTION - Extremities Exam Extremities Exam: absent: Pedal Edema - Back Exam Back Exam: absent: CVA tenderness (L), CVA tenderness (R) - Neurological Exam Neurological Exam: Alert, Awake, Oriented x3 Assessment and Plan (1) Pneumonia Status: Acute - Assessment and Plan (Free Text) Assessment: iv rx renewed
--- NOTE | 2018-02-21 17:40 | CP.PCM.PN ---
Subjective - Date & Time of Evaluation Date of Evaluation: 02/21/18 Time of Evaluation: 10:15 - Subjective Subjective: clinically same Objective - Vital Signs/Intake and Output Vital Signs (last 24 hours): Temp Pulse Resp BP Pulse Ox 99 F 74 18 124/71 96 02/21/18 16:00 02/21/18 16:00 02/21/18 16:00 02/21/18 16:00 02/21/18 16:00 Intake and Output: 02/21/18 02/21/18 06:59 18:59 Intake Total 580 Balance 580 - Medications Medications: Current Medications Acetaminophen (Tylenol 325mg Tab) 650 mg PO Q6 PRN PRN Reason: Fever >100.4 F Last Admin: 02/19/18 16:52 Dose: 650 mg Enoxaparin Sodium (Lovenox) 40 mg SC DAILY [facility] Last Admin: 02/21/18 09:40 Dose: 40 mg Fluticasone/Vilanterol (Breo Ellipta 100-25 Mcg Inh) 1 puff INH RQ24 [facility] Cefepime HCl (Maxipime Iv 1 Gm Premix) 1 gm in 50 mls @ 100 mls/hr IVPB Q8H [facility]; Protocol Last Admin: 02/21/18 12:39 Dose: 100 mls/hr Methylprednisolone (Solu-Medrol) 40 mg IVP Q8 [facility] Last Admin: 02/21/18 13:28 Dose: 40 mg Metoprolol Tartrate (Lopressor) 25 mg PO BID [facility] Last Admin: 02/21/18 09:40 Dose: 25 mg Montelukast Sodium (Singulair) 10 mg PO HS [facility] Last Admin: 02/20/18 21:56 Dose: 10 mg Tiotropium [place] (Spiriva) 1 mcg INH DAILY [facility] Last Admin: 02/21/18 13:39 Dose: Not Given Tramadol HCl (Ultram) 50 mg PO Q6 PRN PRN Reason: Pain, moderate (4-7) Last Admin: 02/18/18 12:15 Dose: 50 mg - Labs Labs: 02/20/18 06:42 02/20/18 06:42 - Constitutional Appears: Well - Head Exam Head Exam: ATRAUMATIC, NORMAL INSPECTION, NORMOCEPHALIC - Eye Exam Eye Exam: EOMI, Normal appearance, PERRL Pupil Exam: NORMAL ACCOMODATION, PERRL - ENT Exam ENT Exam: Mucous Membranes Moist, Normal Exam - Neck Exam Neck Exam: Full ROM, Normal Inspection. absent: Lymphadenopathy - Respiratory Exam Respiratory Exam: Decreased Breath Sounds - Cardiovascular Exam Cardiovascular Exam: REGULAR RHYTHM, +S1, +S2 - GI/Abdominal Exam GI & Abdominal Exam: Soft, Diminished Bowel Sounds - Rectal Exam Rectal Exam: Deferred
[2018-02-22] MEDS: Cefepime IV 1 gm in Dextrose 1 GM/50 ML BAG IVPB SCH ×3 (04:30→20:41)
[2018-02-22] MEDS: MethylPREDNISolone 40 mg Vial IVP SCH ×3 (05:51→21:49)
[2018-02-22] MEDS: Enoxaparin 40 mg Syringe SC SCH (09:46)
[2018-02-22] MEDS: Pantoprazole 40 mg EC Tab PO SCH (17:11)
--- NOTE | 2018-02-22 19:16 | CP.PCM.PN ---
Subjective - Date & Time of Evaluation Date of Evaluation: 02/22/18 Time of Evaluation: 11:00 - Subjective Subjective: clinically same Objective - Vital Signs/Intake and Output Vital Signs (last 24 hours): Temp Pulse Resp BP Pulse Ox 97.8 F 64 20 122/71 98 02/22/18 15:00 02/22/18 15:00 02/22/18 15:00 02/22/18 17:11 02/22/18 15:00 - Medications Medications: Current Medications Acetaminophen (Tylenol 325mg Tab) 650 mg PO Q6 PRN PRN Reason: Fever >100.4 F Last Admin: 02/19/18 16:52 Dose: 650 mg Fluticasone/Vilanterol (Breo Ellipta 100-25 Mcg Inh) 1 puff INH RQ24 [facility] Cefepime HCl (Maxipime Iv 1 Gm Premix) 1 gm in 50 mls @ 100 mls/hr IVPB Q8H [facility]; Protocol Last Admin: 02/22/18 12:19 Dose: 100 mls/hr Methylprednisolone (Solu-Medrol) 40 mg IVP Q8 [facility] Last Admin: 02/22/18 14:22 Dose: 40 mg Metoprolol Tartrate (Lopressor) 25 mg PO BID [facility] Last Admin: 02/22/18 17:11 Dose: 25 mg Montelukast Sodium (Singulair) 10 mg PO HS [facility] Last Admin: 02/21/18 21:44 Dose: 10 mg Pantoprazole Sodium (Protonix Ec Tab) 40 mg PO DAILY [facility] Last Admin: 02/22/18 17:11 Dose: 40 mg Tiotropium [place] (Spiriva) 1 mcg INH DAILY [facility] Last Admin: 02/21/18 13:39 Dose: Not Given Tramadol HCl (Ultram) 50 mg PO Q6 PRN PRN Reason: Pain, moderate (4-7) Last Admin: 02/22/18 03:20 Dose: 50 mg - Labs Labs: 02/20/18 06:42 02/20/18 06:42 - Constitutional Appears: Well - Head Exam Head Exam: ATRAUMATIC, NORMAL INSPECTION, NORMOCEPHALIC - Eye Exam Eye Exam: EOMI, Normal appearance, PERRL Pupil Exam: NORMAL ACCOMODATION, PERRL - ENT Exam ENT Exam: Mucous Membranes Moist, Normal Exam - Neck Exam Neck Exam: Full ROM, Normal Inspection. absent: Lymphadenopathy - Respiratory Exam Respiratory Exam: Decreased Breath Sounds - Cardiovascular Exam Cardiovascular Exam: REGULAR RHYTHM, +S1, +S2 - GI/Abdominal Exam GI & Abdominal Exam: Soft, Diminished Bowel Sounds - Rectal Exam Rectal Exam: Deferred
[2018-02-23] MEDS: Cefepime IV 1 gm in Dextrose 1 GM/50 ML BAG IVPB SCH ×3 (05:00→20:17)
[2018-02-23] MEDS: MethylPREDNISolone 40 mg Vial IVP SCH ×3 (05:09→22:02)
[2018-02-23] MEDS: Pantoprazole 40 mg EC Tab PO SCH (09:53)
--- NOTE | 2018-02-23 16:04 | CP.PCM.PN ---
Subjective - Date & Time of Evaluation Date of Evaluation: 02/23/18 Time of Evaluation: 07:00 - Subjective Subjective: awake alert afebrile nad Objective - Vital Signs/Intake and Output Vital Signs (last 24 hours): Temp Pulse Resp BP Pulse Ox 98.1 F 69 20 117/55 L 98 02/23/18 07:44 02/23/18 07:44 02/23/18 07:44 02/23/18 09:53 02/23/18 07:44 - Medications Medications: Current Medications Acetaminophen (Tylenol 325mg Tab) 650 mg PO Q6 PRN PRN Reason: Fever >100.4 F Last Admin: 02/19/18 16:52 Dose: 650 mg Fluticasone/Vilanterol (Breo Ellipta 100-25 Mcg Inh) 1 puff INH RQ24 [facility] Cefepime HCl (Maxipime Iv 1 Gm Premix) 1 gm in 50 mls @ 100 mls/hr IVPB Q8H [facility]; Protocol Last Admin: 02/23/18 13:00 Dose: 100 mls/hr Methylprednisolone (Solu-Medrol) 40 mg IVP Q8 [facility] Last Admin: 02/23/18 13:57 Dose: 40 mg Metoprolol Tartrate (Lopressor) 25 mg PO BID [facility] Last Admin: 02/23/18 09:53 Dose: 25 mg Montelukast Sodium (Singulair) 10 mg PO HS [facility] Last Admin: 02/22/18 21:49 Dose: 10 mg Pantoprazole Sodium (Protonix Ec Tab) 40 mg PO DAILY [facility] Last Admin: 02/23/18 09:53 Dose: 40 mg Tiotropium [place] (Spiriva) 1 mcg INH DAILY [facility] Last Admin: 02/21/18 13:39 Dose: Not Given Tramadol HCl (Ultram) 50 mg PO Q6 PRN PRN Reason: Pain, moderate (4-7) Last Admin: 02/23/18 09:54 Dose: 50 mg - Labs Labs: 02/20/18 06:42 02/20/18 06:42 - Constitutional Appears: Non-toxic, Chronically Ill - Head Exam Head Exam: NORMOCEPHALIC - Eye Exam Eye Exam: absent: Scleral icterus - ENT Exam ENT Exam: Mucous Membranes Dry - Neck Exam Neck Exam: absent: Lymphadenopathy - Respiratory Exam Respiratory Exam: Decreased Breath Sounds - Cardiovascular Exam Cardiovascular Exam: REGULAR RHYTHM - GI/Abdominal Exam GI & Abdominal Exam: Distended, Soft - Rectal Exam Rectal Exam: Deferred Assessment and Plan (1) Pneumonia Status: Acute - Assessment and Plan (Free Text) Assessment: cont iv rx follow up CXR pulm re-eval
--- NOTE | 2018-02-23 17:32 | CP.PCM.PN ---
Subjective - Date & Time of Evaluation Date of Evaluation: 02/23/18 Time of Evaluation: 10:15 - Subjective Subjective: clinically same Objective - Vital Signs/Intake and Output Vital Signs (last 24 hours): Temp Pulse Resp BP Pulse Ox 97.1 F L 70 20 136/76 95 02/23/18 16:00 02/23/18 16:00 02/23/18 16:00 02/23/18 16:00 02/23/18 16:00 - Medications Medications: Current Medications Acetaminophen (Tylenol 325mg Tab) 650 mg PO Q6 PRN PRN Reason: Fever >100.4 F Last Admin: 02/19/18 16:52 Dose: 650 mg Fluticasone/Vilanterol (Breo Ellipta 100-25 Mcg Inh) 1 puff INH RQ24 [facility] Cefepime HCl (Maxipime Iv 1 Gm Premix) 1 gm in 50 mls @ 100 mls/hr IVPB Q8H [facility]; Protocol Last Admin: 02/23/18 13:00 Dose: 100 mls/hr Methylprednisolone (Solu-Medrol) 40 mg IVP Q8 [facility] Last Admin: 02/23/18 13:57 Dose: 40 mg Metoprolol Tartrate (Lopressor) 25 mg PO BID [facility] Last Admin: 02/23/18 09:53 Dose: 25 mg Montelukast Sodium (Singulair) 10 mg PO HS [facility] Last Admin: 02/22/18 21:49 Dose: 10 mg Pantoprazole Sodium (Protonix Ec Tab) 40 mg PO DAILY [facility] Last Admin: 02/23/18 09:53 Dose: 40 mg Tiotropium [place] (Spiriva) 1 mcg INH DAILY [facility] Last Admin: 02/21/18 13:39 Dose: Not Given Tramadol HCl (Ultram) 50 mg PO Q6 PRN PRN Reason: Pain, moderate (4-7) Last Admin: 02/23/18 09:54 Dose: 50 mg - Labs Labs: 02/20/18 06:42 02/20/18 06:42 - Constitutional Appears: Well - Head Exam Head Exam: ATRAUMATIC, NORMAL INSPECTION, NORMOCEPHALIC - Eye Exam Eye Exam: EOMI, Normal appearance, PERRL Pupil Exam: NORMAL ACCOMODATION, PERRL - ENT Exam ENT Exam: Mucous Membranes Moist, Normal Exam - Neck Exam Neck Exam: Full ROM, Normal Inspection. absent: Lymphadenopathy - Respiratory Exam Respiratory Exam: Decreased Breath Sounds - Cardiovascular Exam Cardiovascular Exam: REGULAR RHYTHM, +S1, +S2 - GI/Abdominal Exam GI & Abdominal Exam: Soft, Diminished Bowel Sounds - Rectal Exam Rectal Exam: Deferred
--- NOTE | 2018-02-23 18:35 | CP.PCM.PN ---
Subjective - Date & Time of Evaluation Date of Evaluation: 02/23/18 Time of Evaluation: 16:20 - Subjective Subjective: Patient seen and examined No events overnight Objective - Vital Signs/Intake and Output Vital Signs (last 24 hours): Temp Pulse Resp BP Pulse Ox 97.1 F L 70 20 130/75 95 02/23/18 16:00 02/23/18 16:00 02/23/18 16:00 02/23/18 17:56 02/23/18 16:00 - Medications Medications: Current Medications Acetaminophen (Tylenol 325mg Tab) 650 mg PO Q6 PRN PRN Reason: Fever >100.4 F Last Admin: 02/19/18 16:52 Dose: 650 mg Fluticasone/Vilanterol (Breo Ellipta 100-25 Mcg Inh) 1 puff INH RQ24 [facility] Cefepime HCl (Maxipime Iv 1 Gm Premix) 1 gm in 50 mls @ 100 mls/hr IVPB Q8H [facility]; Protocol Last Admin: 02/23/18 13:00 Dose: 100 mls/hr Methylprednisolone (Solu-Medrol) 40 mg IVP Q8 [facility] Last Admin: 02/23/18 13:57 Dose: 40 mg Metoprolol Tartrate (Lopressor) 25 mg PO BID [facility] Last Admin: 02/23/18 17:56 Dose: 25 mg Montelukast Sodium (Singulair) 10 mg PO HS [facility] Last Admin: 02/22/18 21:49 Dose: 10 mg Pantoprazole Sodium (Protonix Ec Tab) 40 mg PO DAILY [facility] Last Admin: 02/23/18 09:53 Dose: 40 mg Tiotropium [place] (Spiriva) 1 mcg INH DAILY [facility] Last Admin: 02/21/18 13:39 Dose: Not Given Tramadol HCl (Ultram) 50 mg PO Q6 PRN PRN Reason: Pain, moderate (4-7) Last Admin: 02/23/18 09:54 Dose: 50 mg - Labs Labs: 02/20/18 06:42 02/20/18 06:42 - Head Exam Head Exam: NORMAL INSPECTION - Eye Exam Eye Exam: Normal appearance - ENT Exam ENT Exam: Mucous Membranes Moist - Respiratory Exam Respiratory Exam: Decreased Breath Sounds - Cardiovascular Exam Cardiovascular Exam: REGULAR RHYTHM, +S1, +S2 - GI/Abdominal Exam GI & Abdominal Exam: Soft, Normal Bowel Sounds - Extremities Exam Extremities Exam: Normal Inspection Assessment and Plan (1) Bronchiectasis Status: Acute (2) COPD (chronic obstructive pulmonary disease) Status: Acute (3) History of pneumonectomy Status: Acute (4) Pneumonia Status: Acute - Assessment and Plan (Free Text) Plan: Continue antibiotics Advair Continue steroids Oxygen supplementation next chest PT DVT/GI prophylaxis
[2018-02-24] MEDS: Cefepime IV 1 gm in Dextrose 1 GM/50 ML BAG IVPB SCH ×3 (05:15→20:57)
[2018-02-24] MEDS: MethylPREDNISolone 40 mg Vial IVP SCH ×3 (05:15→21:32)
[2018-02-24] MEDS: Pantoprazole 40 mg EC Tab PO SCH (09:09)
[2018-02-24] MEDS: Tiotropium 18 mcg Cap For Inhalation INH SCH (10:48)
[2018-02-24 11:23] LABS: BASO # 0.1 K/uL (0.0-0.2); BASO % 0.6 % (0.0-2.0); HEMOGLOBIN 13.1 g/dL (11.0-16.0); LYMPH # 0.6 K/uL (1.0-4.3); MEAN CORPUSCULAR HEMOGLOBIN 29.4 pg (27.0-31.0); MEAN CORPUSCULAR HGB CONC 33.4 g/dL (33.0-37.0); MEAN PLATELET VOLUME 7.7 fL (7.2-11.7); MONO # 0.3 K/uL (0.0-0.8); MONO % 1.6 % (0.0-10.0); NEUT # 20.2 K/uL (1.8-7.0); NEUT % 94.8 % (50.0-75.0); PLATELET COUNT 276 K/uL (130-400); RBC 4.46 Mil/uL (3.80-5.20); RED CELL DISTRIBUTION WIDTH 13.4 % (11.5-14.5); WHITE BLOOD COUNT 21.4 K/uL (4.8-10.8)
[2018-02-24 11:36] LABS: BLOOD UREA NITROGEN 28 mg/dL (7-17); CALCIUM 8.9 mg/dl (8.6-10.4); GFR NON-AFRICAN AMERICAN > 60
[2018-02-24 12:09] LABS: BANDS 1 % (0-2); LYMPHOCYTE 2 % (20-40); MONOCYTE 1 % (0-10); MYELOCYTE 1 % (0-0); NEUTROPHIL 95 % (50-75); PLATELET ESTIMATE NORMAL (NORMAL); TOTAL CELLS COUNTED 100
--- NOTE | 2018-02-24 12:38 | CP.PCM.PN ---
Subjective - Date & Time of Evaluation Date of Evaluation: 02/24/18 Time of Evaluation: 09:00 - Subjective Subjective: wbc up on steroids consider taper Objective - Vital Signs/Intake and Output Vital Signs (last 24 hours): Temp Pulse Resp BP Pulse Ox 98.2 F 69 20 147/74 96 02/24/18 08:00 02/24/18 09:09 02/24/18 08:00 02/24/18 09:09 02/24/18 08:00 - Medications Medications: Current Medications Acetaminophen (Tylenol 325mg Tab) 650 mg PO Q6 PRN PRN Reason: Fever >100.4 F Last Admin: 02/19/18 16:52 Dose: 650 mg Fluticasone/Vilanterol (Breo Ellipta 100-25 Mcg Inh) 1 puff INH RQ24 [facility] Cefepime HCl (Maxipime Iv 1 Gm Premix) 1 gm in 50 mls @ 100 mls/hr IVPB Q8H [facility]; Protocol Last Admin: 02/24/18 05:15 Dose: 100 mls/hr Methylprednisolone (Solu-Medrol) 40 mg IVP Q8 [facility] Last Admin: 02/24/18 05:15 Dose: 40 mg Metoprolol Tartrate (Lopressor) 25 mg PO BID [facility] Last Admin: 02/24/18 09:09 Dose: 25 mg Montelukast Sodium (Singulair) 10 mg PO HS [facility] Last Admin: 02/23/18 22:02 Dose: 10 mg Pantoprazole Sodium (Protonix Ec Tab) 40 mg PO DAILY [facility] Last Admin: 02/24/18 09:09 Dose: 40 mg Tiotropium [place] (Spiriva) 1 mcg INH DAILY [facility] Last Admin: 02/24/18 10:48 Dose: Not Given Tramadol HCl (Ultram) 50 mg PO Q6 PRN PRN Reason: Pain, moderate (4-7) Last Admin: 02/23/18 09:54 Dose: 50 mg - Labs Labs: 02/24/18 11:17 02/24/18 11:17 - Constitutional Appears: Non-toxic, Chronically Ill - Head Exam Head Exam: NORMOCEPHALIC - Eye Exam Eye Exam: absent: Scleral icterus - ENT Exam ENT Exam: Mucous Membranes Dry - Neck Exam Neck Exam: absent: Lymphadenopathy - Respiratory Exam Respiratory Exam: Decreased Breath Sounds - Cardiovascular Exam Cardiovascular Exam: REGULAR RHYTHM - GI/Abdominal Exam GI & Abdominal Exam: Distended - Rectal Exam Rectal Exam: Deferred - Exam Exam: NORMAL INSPECTION Assessment and Plan (1) Pneumonia Status: Acute - Assessment and Plan (Free Text) Assessment: consider taper steroids follow up cxr
--- NOTE | 2018-02-24 16:07 | RAD ---
Date of service: 02/24/2018 HISTORY: History of lobectomy COMPARISON: Comparison made with prior chest radiograph 02/14/[address] scan chest 02/16/2018. TECHNIQUE: Chest PA and lateral FINDINGS: LUNGS: Postoperative changes of left-sided pneumonectomy. Complete opacification deformed left hemithorax. There is marked mediastinal shift from left to right. Cardiac silhouette cannot be adequately evaluated due to mediastinal shift. Mild right apical pleural thickening and suspected parenchymal scarring. Suspect compensatory overinflation right lung minimal linear scarring right lung base extending to to the diaphragmatic surface with associated mild tenting of the diaphragmatic surface. PLEURA: No significant pleural effusion identified. No pneumothorax apparent. CARDIOVASCULAR: No discernible aortic atherosclerotic calcification present. Normal cardiac size. No pulmonary vascular congestion. OSSEOUS STRUCTURES: No significant abnormalities. VISUALIZED UPPER ABDOMEN: Normal. OTHER FINDINGS: None. IMPRESSION: Postoperative changes of left-sided pneumonectomy. Complete opacification deformed left hemithorax. There is marked mediastinal shift from left to right. Cardiac silhouette cannot be adequately evaluated due to mediastinal shift. Mild right apical pleural thickening and suspected parenchymal scarring. Suspect compensatory overinflation right lung minimal linear scarring right lung base extending to to the diaphragmatic surface with associated mild tenting of the diaphragmatic surface.
--- NOTE | 2018-02-24 18:52 | CP.PCM.PN ---
Subjective - Date & Time of Evaluation Date of Evaluation: 02/24/18 Time of Evaluation: 18:52 - Subjective Subjective: Patient seen and examined No events overnight Objective - Vital Signs/Intake and Output Vital Signs (last 24 hours): Temp Pulse Resp BP Pulse Ox 98.1 F 71 20 147/74 96 02/24/18 16:00 02/24/18 18:24 02/24/18 16:00 02/24/18 18:25 02/24/18 16:00 - Medications Medications: Current Medications Acetaminophen (Tylenol 325mg Tab) 650 mg PO Q6 PRN PRN Reason: Fever >100.4 F Last Admin: 02/19/18 16:52 Dose: 650 mg Fluticasone/Vilanterol (Breo Ellipta 100-25 Mcg Inh) 1 puff INH RQ24 [facility] Cefepime HCl (Maxipime Iv 1 Gm Premix) 1 gm in 50 mls @ 100 mls/hr IVPB Q8H [facility]; Protocol Last Admin: 02/24/18 12:28 Dose: 100 mls/hr Methylprednisolone (Solu-Medrol) 40 mg IVP Q8 [facility] Last Admin: 02/24/18 13:41 Dose: 40 mg Metoprolol Tartrate (Lopressor) 25 mg PO BID [facility] Last Admin: 02/24/18 18:25 Dose: 25 mg Montelukast Sodium (Singulair) 10 mg PO HS [facility] Last Admin: 02/23/18 22:02 Dose: 10 mg Pantoprazole Sodium (Protonix Ec Tab) 40 mg PO DAILY [facility] Last Admin: 02/24/18 09:09 Dose: 40 mg Tiotropium [place] (Spiriva) 1 mcg INH DAILY [facility] Last Admin: 02/24/18 10:48 Dose: Not Given Tramadol HCl (Ultram) 50 mg PO Q6 PRN PRN Reason: Pain, moderate (4-7) Last Admin: 02/23/18 09:54 Dose: 50 mg - Labs Labs: 02/24/18 11:17 02/24/18 11:17 - Head Exam Head Exam: NORMAL INSPECTION - Eye Exam Eye Exam: Normal appearance - ENT Exam ENT Exam: Mucous Membranes Moist - Respiratory Exam Respiratory Exam: Clear to Ausculation Bilateral - Cardiovascular Exam Cardiovascular Exam: REGULAR RHYTHM - GI/Abdominal Exam GI & Abdominal Exam: Soft, Normal Bowel Sounds - Extremities Exam Extremities Exam: Normal Inspection Assessment and Plan (1) Bronchiectasis Status: Acute (2) COPD (chronic obstructive pulmonary disease) Status: Acute (3) History of pneumonectomy Status: Acute (4) Pneumonia Status: Acute - Assessment and Plan (Free Text) Plan: Continue antibiotics Advair Continue steroids Will start slow taper of steroids Oxygen supplementation next chest PT DVT/GI prophylaxis
--- NOTE | 2018-02-24 21:22 | CARD ---
APPROVED REPORT Date of service: 02/22/2018 EKG Measurement Heart [id number] <Conclusion> Sinus bradycardia with sinus arrhythmia Low voltage QRS Abnormal ECG
--- NOTE | 2018-02-24 23:50 | CP.PCM.PN ---
Subjective - Date & Time of Evaluation Date of Evaluation: 02/24/18 Time of Evaluation: 09:10 - Subjective Subjective: clinically same Objective - Vital Signs/Intake and Output Vital Signs (last 24 hours): Temp Pulse Resp BP Pulse Ox 98.1 F 71 20 147/74 96 02/24/18 16:00 02/24/18 18:24 02/24/18 16:00 02/24/18 18:25 02/24/18 16:00 - Medications Medications: Current Medications Acetaminophen (Tylenol 325mg Tab) 650 mg PO Q6 PRN PRN Reason: Fever >100.4 F Last Admin: 02/19/18 16:52 Dose: 650 mg Fluticasone/Vilanterol (Breo Ellipta 100-25 Mcg Inh) 1 puff INH RQ24 [facility] Cefepime HCl (Maxipime Iv 1 Gm Premix) 1 gm in 50 mls @ 100 mls/hr IVPB Q8H [facility]; Protocol Last Admin: 02/24/18 20:57 Dose: 100 mls/hr Methylprednisolone (Solu-Medrol) 40 mg IVP Q8 [facility] Last Admin: 02/24/18 21:32 Dose: 40 mg Metoprolol Tartrate (Lopressor) 25 mg PO BID [facility] Last Admin: 02/24/18 18:25 Dose: 25 mg Montelukast Sodium (Singulair) 10 mg PO HS [facility] Last Admin: 02/24/18 21:19 Dose: 10 mg Pantoprazole Sodium (Protonix Ec Tab) 40 mg PO DAILY [facility] Last Admin: 02/24/18 09:09 Dose: 40 mg Tiotropium [place] (Spiriva) 1 mcg INH DAILY [facility] Last Admin: 02/24/18 10:48 Dose: Not Given Tramadol HCl (Ultram) 50 mg PO Q6 PRN PRN Reason: Pain, moderate (4-7) Last Admin: 02/23/18 09:54 Dose: 50 mg - Labs Labs: 02/24/18 11:17 02/24/18 11:17 - Constitutional Appears: Well - Head Exam Head Exam: ATRAUMATIC, NORMAL INSPECTION, NORMOCEPHALIC - Eye Exam Eye Exam: EOMI, Normal appearance, PERRL Pupil Exam: NORMAL ACCOMODATION, PERRL - ENT Exam ENT Exam: Mucous Membranes Moist, Normal Exam - Neck Exam Neck Exam: Full ROM, Normal Inspection. absent: Lymphadenopathy - Respiratory Exam Respiratory Exam: Decreased Breath Sounds - Cardiovascular Exam Cardiovascular Exam: REGULAR RHYTHM, +S1, +S2 - GI/Abdominal Exam GI & Abdominal Exam: Soft, Diminished Bowel Sounds - Rectal Exam Rectal Exam: Deferred
[2018-02-25] MEDS: Cefepime IV 1 gm in Dextrose 1 GM/50 ML BAG IVPB SCH ×3 (04:15→20:15)
[2018-02-25] MEDS: Pantoprazole 40 mg EC Tab PO SCH (10:05)
--- NOTE | 2018-02-25 12:52 | CP.PCM.PN ---
Subjective - Date & Time of Evaluation Date of Evaluation: 02/25/18 Time of Evaluation: 09:10 - Subjective Subjective: clinically same Objective - Vital Signs/Intake and Output Vital Signs (last 24 hours): Temp Pulse Resp BP Pulse Ox 97.9 F 82 18 134/68 96 02/25/18 08:15 02/25/18 10:04 02/25/18 08:15 02/25/18 10:05 02/25/18 08:15 - Medications Medications: Current Medications Acetaminophen (Tylenol 325mg Tab) 650 mg PO Q6 PRN PRN Reason: Fever >100.4 F Last Admin: 02/19/18 16:52 Dose: 650 mg Enoxaparin Sodium (Lovenox) 40 mg SC DAILY [facility] Fluticasone/Vilanterol (Breo Ellipta 100-25 Mcg Inh) 1 puff INH RQ24 [facility] Cefepime HCl (Maxipime Iv 1 Gm Premix) 1 gm in 50 mls @ 100 mls/hr IVPB Q8H [facility]; Protocol Last Admin: 02/25/18 11:29 Dose: 100 mls/hr Methylprednisolone (Solu-Medrol) 40 mg IVP Q8 [facility] Last Admin: 02/24/18 21:32 Dose: 40 mg Metoprolol Tartrate (Lopressor) 25 mg PO BID [facility] Last Admin: 02/25/18 10:05 Dose: 25 mg Montelukast Sodium (Singulair) 10 mg PO HS [facility] Last Admin: 02/24/18 21:19 Dose: 10 mg Pantoprazole Sodium (Protonix Ec Tab) 40 mg PO DAILY [facility] Last Admin: 02/25/18 10:05 Dose: 40 mg Saliva Substitute (First Magic Mouthwash) 5 ml PO QID [facility] Tiotropium [place] (Spiriva) 1 mcg INH DAILY [facility] Last Admin: 02/24/18 10:48 Dose: Not Given Tramadol HCl (Ultram) 50 mg PO Q6 PRN PRN Reason: Pain, moderate (4-7) Last Admin: 02/23/18 09:54 Dose: 50 mg - Labs Labs: 02/24/18 11:17 02/24/18 11:17 - Constitutional Appears: Well - Head Exam Head Exam: ATRAUMATIC, NORMAL INSPECTION, NORMOCEPHALIC - Eye Exam Eye Exam: EOMI, Normal appearance, PERRL Pupil Exam: NORMAL ACCOMODATION, PERRL - ENT Exam ENT Exam: Mucous Membranes Moist, Normal Exam - Neck Exam Neck Exam: Full ROM, Normal Inspection. absent: Lymphadenopathy - Respiratory Exam Respiratory Exam: Decreased Breath Sounds - Cardiovascular Exam Cardiovascular Exam: REGULAR RHYTHM, +S1, +S2 - GI/Abdominal Exam GI & Abdominal Exam: Soft, Diminished Bowel Sounds - Rectal Exam Rectal Exam: Deferred
[2018-02-25] MEDS: Mag&Al/Simet/Diphen/Lido 237 ML KIT PO SCH ×3 (13:16→22:00)
[2018-02-25] MEDS: Enoxaparin 40 mg Syringe SC SCH (13:16)
[2018-02-25] MEDS: MethylPREDNISolone 40 mg Vial IVP SCH ×2 (13:28→14:28)
[2018-02-25] MEDS ORDERED: MethylPREDNISolone 40 mg Vial IVP SCH (14:00)
--- NOTE | 2018-02-25 17:41 | CP.PCM.PN ---
Subjective - Date & Time of Evaluation Date of Evaluation: 02/25/18 Time of Evaluation: 17:41 - Subjective Subjective: Patient seen and examined Reports to be feeling better Objective - Vital Signs/Intake and Output Vital Signs (last 24 hours): Temp Pulse Resp BP Pulse Ox 98.8 F 84 20 112/66 94 L 02/25/18 15:00 02/25/18 15:00 02/25/18 15:00 02/25/18 15:00 02/25/18 15:00 - Medications Medications: Current Medications Acetaminophen (Tylenol 325mg Tab) 650 mg PO Q6 PRN PRN Reason: Fever >100.4 F Last Admin: 02/19/18 16:52 Dose: 650 mg Enoxaparin Sodium (Lovenox) 40 mg SC DAILY [facility] Last Admin: 02/25/18 13:16 Dose: 40 mg Fluticasone/Vilanterol (Breo Ellipta 100-25 Mcg Inh) 1 puff INH RQ24 [facility] Cefepime HCl (Maxipime Iv 1 Gm Premix) 1 gm in 50 mls @ 100 mls/hr IVPB Q8H [facility]; Protocol Last Admin: 02/25/18 11:29 Dose: 100 mls/hr Methylprednisolone (Solu-Medrol) 40 mg IVP Q12H [facility] Last Admin: 02/25/18 14:28 Dose: Not Given Metoprolol Tartrate (Lopressor) 25 mg PO BID [facility] Last Admin: 02/25/18 10:05 Dose: 25 mg Montelukast Sodium (Singulair) 10 mg PO HS [facility] Last Admin: 02/24/18 21:19 Dose: 10 mg Pantoprazole Sodium (Protonix Ec Tab) 40 mg PO DAILY [facility] Last Admin: 02/25/18 10:05 Dose: 40 mg Saliva Substitute (First Magic Mouthwash) 5 ml PO QID [facility] Last Admin: 02/25/18 13:16 Dose: 5 ml Tiotropium [place] (Spiriva) 1 mcg INH DAILY [facility] Last Admin: 02/24/18 10:48 Dose: Not Given Tramadol HCl (Ultram) 50 mg PO Q6 PRN PRN Reason: Pain, moderate (4-7) Last Admin: 02/23/18 09:54 Dose: 50 mg - Labs Labs: 02/24/18 11:17 11/26/18 11:17 - Head Exam Head Exam: NORMAL INSPECTION - Eye Exam Eye Exam: Normal appearance - ENT Exam ENT Exam: Mucous Membranes Moist - Respiratory Exam Respiratory Exam: Decreased Breath Sounds - Cardiovascular Exam Cardiovascular Exam: REGULAR RHYTHM, +S1, +S2 - GI/Abdominal Exam GI & Abdominal Exam: Soft, Normal Bowel Sounds - Neurological Exam Neurological Exam: Alert, Awake Assessment and Plan (1) Bronchiectasis Status: Acute (2) COPD (chronic obstructive pulmonary disease) Status: Acute (3) History of pneumonectomy Status: Acute (4) Pneumonia Status: Acute - Assessment and Plan (Free Text) Plan: Bronchodilators Chest PT Patient continues to improve clinically Antibiotics as per ID DC planning
[2018-02-26] MEDS: MethylPREDNISolone 40 mg Vial IVP SCH ×2 (01:25→13:04)
[2018-02-26] MEDS: Cefepime IV 1 gm in Dextrose 1 GM/50 ML BAG IVPB SCH ×3 (03:44→20:30)
[2018-02-26] MEDS: Pantoprazole 40 mg EC Tab PO SCH (09:44)
[2018-02-26] MEDS: Enoxaparin 40 mg Syringe SC SCH (09:44)
[2018-02-26] MEDS: Mag&Al/Simet/Diphen/Lido 237 ML KIT PO SCH ×4 (09:44→21:27)
[2018-02-26] MEDS: Tiotropium 18 mcg Cap For Inhalation INH SCH (10:55)
--- NOTE | 2018-02-26 13:28 | CP.PCM.PN ---
Subjective - Date & Time of Evaluation Date of Evaluation: 02/26/18 Time of Evaluation: 13:27 - Subjective Subjective: Patient seen and examined No events overnight Reports improved dyspnea Objective - Vital Signs/Intake and Output Vital Signs (last 24 hours): Temp Pulse Resp BP Pulse Ox 97.6 F 85 20 125/72 97 02/26/18 08:00 02/26/18 09:40 02/26/18 08:00 02/26/18 09:44 02/26/18 08:00 - Medications Medications: Current Medications Acetaminophen (Tylenol 325mg Tab) 650 mg PO Q6 PRN PRN Reason: Fever >100.4 F Last Admin: 02/19/18 16:52 Dose: 650 mg Enoxaparin Sodium (Lovenox) 40 mg SC DAILY [facility] Last Admin: 02/26/18 09:44 Dose: 40 mg Fluticasone/Vilanterol (Breo Ellipta 100-25 Mcg Inh) 1 puff INH RQ24 [facility] Cefepime HCl (Maxipime Iv 1 Gm Premix) 1 gm in 50 mls @ 100 mls/hr IVPB Q8H [facility]; Protocol Last Admin: 02/26/18 12:33 Dose: 100 mls/hr Methylprednisolone (Solu-Medrol) 40 mg IVP Q12H [facility] Last Admin: 02/26/18 13:04 Dose: 40 mg Metoprolol Tartrate (Lopressor) 25 mg PO BID [facility] Last Admin: 02/26/18 09:44 Dose: 25 mg Montelukast Sodium (Singulair) 10 mg PO HS [facility] Last Admin: 02/26/18 00:54 Dose: 10 mg Pantoprazole Sodium (Protonix Ec Tab) 40 mg PO DAILY [facility] Last Admin: 02/26/18 09:44 Dose: 40 mg Saliva Substitute (First Magic Mouthwash) 5 ml PO QID [facility] Last Admin: 02/26/18 09:44 Dose: 5 ml Tiotropium [place] (Spiriva) 1 mcg INH DAILY [facility] Last Admin: 02/24/18 10:48 Dose: Not Given Tramadol HCl (Ultram) 50 mg PO Q6 PRN PRN Reason: Pain, moderate (4-7) Last Admin: 02/23/18 09:54 Dose: 50 mg - Labs Labs: 02/24/18 11:17 11/26/18 11:17 - Head Exam Head Exam: NORMAL INSPECTION - Eye Exam Eye Exam: Normal appearance - ENT Exam ENT Exam: Mucous Membranes Moist - Respiratory Exam Respiratory Exam: Decreased Breath Sounds - Cardiovascular Exam Cardiovascular Exam: REGULAR RHYTHM, +S1, +S2 - GI/Abdominal Exam GI & Abdominal Exam: Soft, Normal Bowel Sounds - Neurological Exam Neurological Exam: Alert, Oriented x3 Assessment and Plan (1) Bronchiectasis Status: Acute (2) COPD (chronic obstructive pulmonary disease) Status: Acute (3) History of pneumonectomy Status: Acute (4) Pneumonia Status: Acute - Assessment and Plan (Free Text) Plan: Continue current care and patient could be discharged home from pulmonary perspective Patient can be discharged home on Advair
--- NOTE | 2018-02-26 22:03 | CP.PCM.PN ---
Subjective - Date & Time of Evaluation Date of Evaluation: 02/26/18 Time of Evaluation: 08:30 - Subjective Subjective: clinically same Objective - Vital Signs/Intake and Output Vital Signs (last 24 hours): Temp Pulse Resp BP Pulse Ox 98.1 F 79 18 115/68 98 02/26/18 15:00 02/26/18 15:00 02/26/18 15:00 02/26/18 17:32 02/26/18 15:00 - Medications Medications: Current Medications Acetaminophen (Tylenol 325mg Tab) 650 mg PO Q6 PRN PRN Reason: Fever >100.4 F Last Admin: 02/19/18 16:52 Dose: 650 mg Enoxaparin Sodium (Lovenox) 40 mg SC DAILY [facility] Last Admin: 02/26/18 09:44 Dose: 40 mg Fluticasone/Vilanterol (Breo Ellipta 100-25 Mcg Inh) 1 puff INH RQ24 [facility] Cefepime HCl (Maxipime Iv 1 Gm Premix) 1 gm in 50 mls @ 100 mls/hr IVPB Q8H [facility]; Protocol Last Admin: 02/26/18 20:30 Dose: 100 mls/hr Methylprednisolone (Solu-Medrol) 40 mg IVP DAILY [facility] Metoprolol Tartrate (Lopressor) 25 mg PO BID [facility] Last Admin: 02/26/18 17:32 Dose: 25 mg Montelukast Sodium (Singulair) 10 mg PO HS [facility] Last Admin: 02/26/18 21:27 Dose: 10 mg Pantoprazole Sodium (Protonix Ec Tab) 40 mg PO DAILY [facility] Last Admin: 02/26/18 09:44 Dose: 40 mg Saliva Substitute (First Magic Mouthwash) 5 ml PO QID [facility] Last Admin: 02/26/18 21:27 Dose: 5 ml Tiotropium [place] (Spiriva) 1 mcg INH DAILY [facility] Last Admin: 02/24/18 10:48 Dose: Not Given Tramadol HCl (Ultram) 50 mg PO Q6 PRN PRN Reason: Pain, moderate (4-7) Last Admin: 02/23/18 09:54 Dose: 50 mg - Labs Labs: 02/24/18 11:17 02/24/18 11:17 - Constitutional Appears: Well - Head Exam Head Exam: ATRAUMATIC, NORMAL INSPECTION, NORMOCEPHALIC - Eye Exam Eye Exam: EOMI, Normal appearance, PERRL Pupil Exam: NORMAL ACCOMODATION, PERRL - ENT Exam ENT Exam: Mucous Membranes Moist, Normal Exam - Neck Exam Neck Exam: Full ROM, Normal Inspection. absent: Lymphadenopathy - Respiratory Exam Respiratory Exam: Decreased Breath Sounds - Cardiovascular Exam Cardiovascular Exam: REGULAR RHYTHM, +S1, +S2 - GI/Abdominal Exam GI & Abdominal Exam: Soft, Diminished Bowel Sounds - Rectal Exam Rectal Exam: Deferred
[2018-02-27 00:19] VITALS: RESP 20
[2018-02-27] MEDS: Cefepime IV 1 gm in Dextrose 1 GM/50 ML BAG IVPB SCH ×3 (04:24→20:57)
[2018-02-27 09:24] LABS: BASO # 0.1 K/uL (0.0-0.2); BASO % 0.3 % (0.0-2.0); EOS % 0.2 % (0.0-4.0); HEMOGLOBIN 14.2 g/dL (11.0-16.0); LYMPH # 1.7 K/uL (1.0-4.3); LYMPH % 10.9 % (20.0-40.0); MEAN CORPUSCULAR HEMOGLOBIN 29.7 pg (27.0-31.0); MEAN CORPUSCULAR HGB CONC 33.8 g/dL (33.0-37.0); MEAN PLATELET VOLUME 9.3 fL (7.2-11.7); MONO # 0.9 K/uL (0.0-0.8); MONO % 5.6 % (0.0-10.0); NEUT # 13.2 K/uL (1.8-7.0); RBC 4.77 Mil/uL (3.80-5.20); RED CELL DISTRIBUTION WIDTH 13.8 % (11.5-14.5); WHITE BLOOD COUNT 15.9 K/uL (4.8-10.8)
[2018-02-27 09:41] LABS: ALB/GLOB RATIO 1.5 (1.0-2.1); ALBUMIN 4.1 g/dL (3.5-5.0); ALT/SGPT 48 U/L (9-52); AST/SGOT 26 U/L (14-36); BLOOD UREA NITROGEN 26 mg/dL (7-17); CALCIUM 8.4 mg/dl (8.6-10.4); GFR NON-AFRICAN AMERICAN > 60
[2018-02-27] MEDS: Pantoprazole 40 mg EC Tab PO SCH (10:36)
[2018-02-27] MEDS: Enoxaparin 40 mg Syringe SC SCH (10:37)
[2018-02-27] MEDS: Mag&Al/Simet/Diphen/Lido 237 ML KIT PO SCH ×4 (10:37→21:00)
[2018-02-27] MEDS: MethylPREDNISolone 40 mg Vial IVP SCH (10:37)
[2018-02-27] MEDS: Tiotropium 18 mcg Cap For Inhalation INH SCH (13:24)
--- NOTE | 2018-02-27 16:52 | CP.PCM.PN ---
Subjective - Date & Time of Evaluation Date of Evaluation: 02/27/18 Time of Evaluation: 16:52 - Subjective Subjective: Patient seen and examined No events overnight Objective - Vital Signs/Intake and Output Vital Signs (last 24 hours): Temp Pulse Resp BP Pulse Ox 97.9 F 72 20 132/67 99 02/27/18 07:59 02/27/18 07:59 02/27/18 07:59 02/27/18 10:36 02/27/18 07:59 - Medications Medications: Current Medications Acetaminophen (Tylenol 325mg Tab) 650 mg PO Q6 PRN PRN Reason: Fever >100.4 F Last Admin: 02/19/18 16:52 Dose: 650 mg Enoxaparin Sodium (Lovenox) 40 mg SC DAILY [facility] Last Admin: 02/27/18 10:37 Dose: 40 mg Fluticasone/Vilanterol (Breo Ellipta 100-25 Mcg Inh) 1 puff INH RQ24 [facility] Cefepime HCl (Maxipime Iv 1 Gm Premix) 1 gm in 50 mls @ 100 mls/hr IVPB Q8H [facility]; Protocol Last Admin: 02/27/18 12:30 Dose: 100 mls/hr Methylprednisolone (Solu-Medrol) 40 mg IVP DAILY [facility] Last Admin: 02/27/18 10:37 Dose: 40 mg Metoprolol Tartrate (Lopressor) 25 mg PO BID [facility] Last Admin: 02/27/18 10:36 Dose: 25 mg Montelukast Sodium (Singulair) 10 mg PO HS [facility] Last Admin: 02/26/18 21:27 Dose: 10 mg Pantoprazole Sodium (Protonix Ec Tab) 40 mg PO DAILY [facility] Last Admin: 02/27/18 10:36 Dose: 40 mg Saliva Substitute (First Magic Mouthwash) 5 ml PO QID [facility] Last Admin: 02/27/18 15:02 Dose: 5 ml Tiotropium [place] (Spiriva) 1 mcg INH DAILY [facility] Last Admin: 02/27/18 13:24 Dose: Not Given Tramadol HCl (Ultram) 50 mg PO Q6 PRN PRN Reason: Pain, moderate (4-7) Last Admin: 02/23/18 09:54 Dose: 50 mg - Labs Labs: 02/27/18 08:58 02/27/18 08:58 - Head Exam Head Exam: NORMAL INSPECTION - Eye Exam Eye Exam: Normal appearance - ENT Exam ENT Exam: Mucous Membranes Moist - Respiratory Exam Respiratory Exam: Decreased Breath Sounds - GI/Abdominal Exam GI & Abdominal Exam: Soft, Normal Bowel Sounds - Extremities Exam Extremities Exam: Normal Inspection Assessment and Plan (1) Bronchiectasis Status: Acute (2) COPD (chronic obstructive pulmonary disease) Status: Acute (3) History of pneumonectomy Status: Acute (4) Pneumonia Status: Acute - Assessment and Plan (Free Text) Plan: Continue antibiotics Advair Bronchodilators Supportive care DVT/GI prophylaxis
--- NOTE | 2018-02-27 19:55 | CP.PCM.PN ---
Subjective - Date & Time of Evaluation Date of Evaluation: 02/27/18 Time of Evaluation: 07:00 - Subjective Subjective: iv rx renewed discussed with Dr Ryan Ramirez Objective - Vital Signs/Intake and Output Vital Signs (last 24 hours): Temp Pulse Resp BP Pulse Ox 97.9 F 69 20 105/57 L 99 02/27/18 07:59 02/27/18 17:51 02/27/18 07:59 02/27/18 17:51 02/27/18 07:59 - Medications Medications: Current Medications Acetaminophen (Tylenol 325mg Tab) 650 mg PO Q6 PRN PRN Reason: Fever >100.4 F Last Admin: 02/19/18 16:52 Dose: 650 mg Enoxaparin Sodium (Lovenox) 40 mg SC DAILY [facility] Last Admin: 02/27/18 10:37 Dose: 40 mg Fluticasone/Vilanterol (Breo Ellipta 100-25 Mcg Inh) 1 puff INH RQ24 [facility] Cefepime HCl (Maxipime Iv 1 Gm Premix) 1 gm in 50 mls @ 100 mls/hr IVPB Q8H [facility]; Protocol Last Admin: 02/27/18 12:30 Dose: 100 mls/hr Methylprednisolone (Solu-Medrol) 40 mg IVP DAILY [facility] Last Admin: 02/27/18 10:37 Dose: 40 mg Metoprolol Tartrate (Lopressor) 25 mg PO BID [facility] Last Admin: 02/27/18 17:50 Dose: 25 mg Montelukast Sodium (Singulair) 10 mg PO HS [facility] Last Admin: 02/26/18 21:27 Dose: 10 mg Pantoprazole Sodium (Protonix Ec Tab) 40 mg PO DAILY [facility] Last Admin: 02/27/18 10:36 Dose: 40 mg Saliva Substitute (First Magic Mouthwash) 5 ml PO QID [facility] Last Admin: 02/27/18 17:50 Dose: 5 ml Tiotropium [place] (Spiriva) 1 mcg INH DAILY [facility] Last Admin: 02/27/18 13:24 Dose: Not Given Tramadol HCl (Ultram) 50 mg PO Q6 PRN PRN Reason: Pain, moderate (4-7) Last Admin: 02/23/18 09:54 Dose: 50 mg - Labs Labs: 02/27/18 08:58 02/27/18 08:58 - Constitutional Appears: Non-toxic, Cachectic, Chronically Ill - Head Exam Head Exam: NORMOCEPHALIC - Eye Exam Eye Exam: absent: Scleral icterus - ENT Exam ENT Exam: Mucous Membranes Dry - Neck Exam Neck Exam: absent: Lymphadenopathy - Respiratory Exam Respiratory Exam: Decreased Breath Sounds - Cardiovascular Exam Cardiovascular Exam: REGULAR RHYTHM - GI/Abdominal Exam GI & Abdominal Exam: Distended - Rectal Exam Rectal Exam: Deferred - Exam Exam: NORMAL INSPECTION - Extremities Exam Extremities Exam: absent: Pedal Edema - Back Exam Back Exam: absent: CVA tenderness (L), CVA tenderness (R) Assessment and Plan (1) Pneumonia Status: Acute - Assessment and Plan (Free Text) Assessment: for possible d/c once cleared by Pulm
--- NOTE | 2018-02-27 21:39 | CP.PCM.PN ---
Subjective - Date & Time of Evaluation Date of Evaluation: 02/27/18 Time of Evaluation: 08:20 - Subjective Subjective: clinically same Objective - Vital Signs/Intake and Output Vital Signs (last 24 hours): Temp Pulse Resp BP Pulse Ox 97.9 F 69 20 105/57 L 99 02/27/18 07:59 02/27/18 17:51 02/27/18 07:59 02/27/18 17:51 02/27/18 07:59 - Medications Medications: Current Medications Acetaminophen (Tylenol 325mg Tab) 650 mg PO Q6 PRN PRN Reason: Fever >100.4 F Last Admin: 02/19/18 16:52 Dose: 650 mg Enoxaparin Sodium (Lovenox) 40 mg SC DAILY [facility] Last Admin: 02/27/18 10:37 Dose: 40 mg Fluticasone/Vilanterol (Breo Ellipta 100-25 Mcg Inh) 1 puff INH RQ24 [facility] Cefepime HCl (Maxipime Iv 1 Gm Premix) 1 gm in 50 mls @ 100 mls/hr IVPB Q8H [facility]; Protocol Last Admin: 02/27/18 20:57 Dose: 100 mls/hr Methylprednisolone (Solu-Medrol) 40 mg IVP DAILY [facility] Last Admin: 02/27/18 10:37 Dose: 40 mg Metoprolol Tartrate (Lopressor) 25 mg PO BID [facility] Last Admin: 02/27/18 17:50 Dose: 25 mg Montelukast Sodium (Singulair) 10 mg PO HS [facility] Last Admin: 02/27/18 21:00 Dose: 10 mg Pantoprazole Sodium (Protonix Ec Tab) 40 mg PO DAILY [facility] Last Admin: 02/27/18 10:36 Dose: 40 mg Saliva Substitute (First Magic Mouthwash) 5 ml PO QID [facility] Last Admin: 02/27/18 21:00 Dose: 5 ml Tiotropium [place] (Spiriva) 1 mcg INH DAILY [facility] Last Admin: 02/27/18 13:24 Dose: Not Given Tramadol HCl (Ultram) 50 mg PO Q6 PRN PRN Reason: Pain, moderate (4-7) Last Admin: 02/23/18 09:54 Dose: 50 mg - Labs Labs: 02/27/18 08:58 02/27/18 08:58 - Constitutional Appears: Well - Head Exam Head Exam: ATRAUMATIC, NORMAL INSPECTION, NORMOCEPHALIC - Eye Exam Eye Exam: EOMI, Normal appearance, PERRL Pupil Exam: NORMAL ACCOMODATION, PERRL - ENT Exam ENT Exam: Mucous Membranes Moist, Normal Exam - Neck Exam Neck Exam: Full ROM, Normal Inspection. absent: Lymphadenopathy - Respiratory Exam Respiratory Exam: Decreased Breath Sounds - Cardiovascular Exam Cardiovascular Exam: REGULAR RHYTHM, +S1, +S2 - GI/Abdominal Exam GI & Abdominal Exam: Soft, Diminished Bowel Sounds - Rectal Exam Rectal Exam: Deferred Assessment and Plan - Assessment and Plan (Free Text) Plan: Discharge planning discussed with Dr. CAMACHO WBC still high Continue metoprolol Continue Rocephin Steroid continue Will discuss with Dr. Leonardo for discharge plan CBC CMP seen Discharge once pulmonary clears We will talk to Dr. Poole Is
[2018-02-28] MEDS: Cefepime IV 1 gm in Dextrose 1 GM/50 ML BAG IVPB SCH ×2 (04:08→12:02)
[2018-02-28 08:09] VITALS: PULSE 73; TEMP 98.4; O2SAT 99
[2018-02-28] MEDS: Tiotropium 18 mcg Cap For Inhalation INH SCH (09:42)
[2018-02-28] MEDS: Pantoprazole 40 mg EC Tab PO SCH (09:47)
[2018-02-28] MEDS: Mag&Al/Simet/Diphen/Lido 237 ML KIT PO SCH (09:47)
[2018-02-28] MEDS: MethylPREDNISolone 40 mg Vial IVP SCH (09:47)
[2018-02-28] MEDS: Enoxaparin 40 mg Syringe SC SCH (09:47)
[2018-02-28 09:48] VITALS: BP 109/63
--- NOTE | 2018-02-28 11:46 | CP.PCM.PN ---
Subjective - Date & Time of Evaluation Date of Evaluation: 02/28/18 Time of Evaluation: 11:46 Objective - Vital Signs/Intake and Output Vital Signs (last 24 hours): Temp Pulse Resp BP Pulse Ox 98.4 F 73 20 109/63 99 02/28/18 08:08 02/28/18 08:08 02/28/18 08:08 02/28/18 09:47 02/28/18 08:08 Intake and Output: 02/28/18 02/28/18 06:59 18:59 Intake Total 550 Balance 550 - Medications Medications: Current Medications Acetaminophen (Tylenol 325mg Tab) 650 mg PO Q6 PRN PRN Reason: Fever >100.4 F Last Admin: 02/19/18 16:52 Dose: 650 mg Enoxaparin Sodium (Lovenox) 40 mg SC DAILY [facility] Last Admin: 02/28/18 09:47 Dose: 40 mg Fluticasone/Vilanterol (Breo Ellipta 100-25 Mcg Inh) 1 puff INH RQ24 [facility] Cefepime HCl (Maxipime Iv 1 Gm Premix) 1 gm in 50 mls @ 100 mls/hr IVPB Q8H [facility]; Protocol Last Admin: 02/28/18 04:08 Dose: 100 mls/hr Methylprednisolone (Solu-Medrol) 40 mg IVP DAILY [facility] Last Admin: 02/28/18 09:47 Dose: 40 mg Metoprolol Tartrate (Lopressor) 25 mg PO BID [facility] Last Admin: 02/28/18 09:47 Dose: 25 mg Montelukast Sodium (Singulair) 10 mg PO HS [facility] Last Admin: 02/27/18 21:00 Dose: 10 mg Pantoprazole Sodium (Protonix Ec Tab) 40 mg PO DAILY [facility] Last Admin: 02/28/18 09:47 Dose: 40 mg Saliva Substitute (First Magic Mouthwash) 5 ml PO QID [facility] Last Admin: 02/27/18 21:00 Dose: 5 ml Tiotropium [place] (Spiriva) 1 mcg INH DAILY [facility] Last Admin: 02/28/18 09:42 Dose: Not Given Tramadol HCl (Ultram) 50 mg PO Q6 PRN PRN Reason: Pain, moderate (4-7) Last Admin: 02/23/18 09:54 Dose: 50 mg - Labs Labs: 02/27/18 08:58 02/27/18 08:58 Assessment and Plan - Assessment and Plan (Free Text) Assessment: FOLLOW UP WITH DR Ryan REBOLLAR IN 1-2 WEEK ----CALL FOR APPOINTMENT ADDRESS REPEAT BLOOD WORK AT YOUR VISIT FOLLOW UP WITH DR PRAJAPATI ----CALL FOR APPOINTMENT CONTINUE HOME MEDICATION NEW PRESCRIPTION GIVEN MEDROL DOSE PACK DIRECTED SINGULAIR 10 MG BY MOUTH AT [facility] [place] 250 MG BY MOUTH TWICE A DAY FOR 3 DAYS KEFLEX 500 MG BY MOUTH EVERY 12 HOURS FOR 3 [address] ACTIVITY TOLERATED CALL DR XOCHILT REBOLLAR OR GO TO THE EMERGENCY ROOM IF SYMPTOM RETURN OR WORSENING
== END 2018-02-28 13:38 | disposition home or self-care (01) | DRG 190 ==
LOC: C.ER 12:07 → C.9E 16:35 → C.5S 17:44
PROVIDERS: ADMIT Internal Medicine Nephrology; ATTEND Internal Medicine Nephrology
DX: J44.0 Chronic obstructive pulmonary disease with (acute) lower respiratory infection (principal); J18.9 Pneumonia, unspecified organism; J47.0 Bronchiectasis with acute lower respiratory infection; Z90.2 Acquired absence of lung [part of]; Z87.09 Personal history of other diseases of the respiratory system; Z90.710 Acquired absence of both cervix and uterus; Z74.01 Bed confinement status

== ENCOUNTER 2018-07-11 13:00 | Outpatient (CLI) | payer BC | END 2018-07-11 13:01 | disposition home or self-care (01) | LOC: C.MAMMO 13:00 | DX: Z12.31 Encounter for screening mammogram for malignant neoplasm of breast (principal) ==